=== PATIENT | male | born 1950 | race Caucasian/White ===

== ENCOUNTER → 2019-08-06 13:07 | Outpatient (BNVA) | payer MEDICARE, OTHER, SELFPAY | PROVIDERS: Family Provider Family Medicine; Referring Provider Family Medicine; Visit Provider Podiatrist Foot & Ankle Surgery | DX: M79.671 Pain in right foot (principal); M79.672 Pain in left foot | CPT/HCPCS: 73630 ==

== ENCOUNTER 2019-08-27 07:57 | Outpatient (CLI) | payer MEDICARE, OTHER, SELFPAY ==
--- NOTE | 2019-08-27 08:00 | US_ITS ---
WS: [id number] US soft tissue/extremity 93912 REASON FOR EXAM: ABDOMINAL WALL MASS/HERNIA VS LIPOMA FINDINGS: The abdominal wall was evaluated with real-time imaging. There is no definite hernias are lipoma is seen. Incidental findings the liver showed a septated cyst and there is multiple stones seen in the gallbla dder. US/US soft tissue/extremity 40867 IMPRESSION: No abdominal wall masses hernias or lipomas. Benign cyst of the liver Multiple cholelithiasis.
== END 2019-08-27 07:58 | disposition home or self-care (01) ==
LOC: US 07:58
PROVIDERS: Family Provider Family Medicine; Visit Provider Family Medicine
DX: R22.2 Localized swelling, mass and lump, trunk (principal); K76.89 Other specified diseases of liver; K80.20 Calculus of gallbladder without cholecystitis without obstruction
CPT/HCPCS: 76882

== ENCOUNTER 2019-09-26 06:37 | Day surgery (SDC) | payer MEDICARE, OTHER, SELFPAY ==
[2019-09-25 09:28] VITALS: BMI 31.3
[2019-09-26 06:55] VITALS: BP 137/101; PULSE 82; RESP 18; TEMP 36.4; O2SAT 95
--- NOTE | 2019-09-26 07:01 | P.ANESASSM_ITS ---
Pre-Anesthetic Assessment Pre-Anesthetic Assessment: Height/Weight: Height 1.83 m Weight 104.78 kg Temp Pulse Resp BP Pulse Ox 97.6 F 82 18 137/101 95 09/26/19 06:55 09/26/19 06:55 09/26/19 06:55 09/26/19 06:55 09/26/19 06:55 Preop Diagnosis: Ojeda's esophagus Proposed Procedure: Operation Date: 09/26/19 07:45 Proposed Procedures p EGD 94026/R13.10(Not Applicable) - José Miguel Koch MD Familial anesthetic complications: Patient states he stops breathing when put to sleep on his back Was Beta Yanna taken within 24 hours: N/A Last intake: Intake Last Liquid Date 09/26/19 Last Liquid Time 05:30 Last Intake: 05:30 (water with meds) Social: Social History: No alcohol and No tobacco Exam: Pre-Anes Outpt Exam: alert, oriented x 3, clear to auscultation bilaterally and regular rate & rhythm Airway: Submandibular: WNL Cervical ROM: WNL MP: 2 History/ROS: No significant history except as noted Pulmonary: Comments: LLL removed from pneumonia at age 19; denies any problems since CV/HEM: CV/HEM: HTN : : None reported Hepatic: Hepatic: Hepatitis (C (treated and cured)) GI: GI: GERD Metabolic: Metabolic: Hyperlipidemia Musc/skel: Musc/skel: None reported Neuropsych: Neuropsych: Neuropathy (lyrica) Anesthetic Plan: ASA status: 2 Anesthesia: Anesthesia Evaluation and MAC Risk of > 500 ml blood loss (7ml/kg in children): No PFSH Anesthesia PFSH: Social History Smoking and tobacco status: never smoked Alcohol intake: never Current occupational status: employed Current occupation: [employer] Anesthesia Cardiac Studies: No Data to Display
[2019-09-26] MEDS: sodium chloride 0.9% 1,000 ML 30 ML (07:02)
--- NOTE | 2019-09-26 07:25 | W.PM.OPSUD ---
Surgery/Procedure H&P Update DATE OF PROCEDURE: September 26, 2019 DATE H&P PERFORMED: 09/24/19 H&P UPDATE INFORMATION: I have reviewed H&P completed within last 30 days, I have examined patient prior to procedure and No changes to prior documentation PREOP DIAGNOSIS: Ojeda's esophagus PLANNED PROCEDURE: Operation Date: 09/26/19 07:45 Proposed Procedures p EGD 92615/R13.10(Not Applicable) - José Miguel Koch MD
[2019-09-26 09:30] VITALS: BP 117/71; PULSE 67; RESP 16; TEMP 36.4; O2SAT 96
--- NOTE | 2019-09-26 09:34 | ANE.PACU2 ---
 Inpatient post-anesthesia follow up: Airway intact: Yes Vital signs: Temperature 97.5 F Pulse Rate 67 Respiratory Rate 16 Blood Pressure 117/71 Pulse Oximetry 96 Oxygen Delivery Me thod Nasal Cannula Oxygen Flow Rate 3 Fraction of Inspir ed Oxygen Hydration adequate: Yes Nausea and vomiting: No Mental status: Baseline
[2019-09-26 09:45] VITALS: BP 101/82; PULSE 76; RESP 18; TEMP 36.6; O2SAT 95
== END 2019-09-26 10:05 | disposition home or self-care (01) ==
PROVIDERS: Family Provider Family Medicine; PCP Family Medicine; Visit Provider Surgery
PROC: 0DJ08ZZ Inspection of Upper Intestinal Tract, Via Natural or Artificial Opening Endoscopic (ICD-10-PCS; CPT 43235; principal; 2019-09-26 07:45)
DX: K22.70 Barrett's esophagus without dysplasia (principal); I10 Essential (primary) hypertension; Z86.19 Personal history of other infectious and parasitic diseases; E78.5 Hyperlipidemia, unspecified; Z79.82 Long term (current) use of aspirin
CPT/HCPCS: 12345; 43235; J2704; J7030

== ENCOUNTER 2019-12-27 08:56 | Outpatient (CLI) | payer MEDICARE, OTHER, SELFPAY ==
--- NOTE | 2019-12-27 09:30 | NM_ITS ---
WS: [id number] NM hepatobiliary w phar* [id number] REASON FOR EXAM: RUQ ABDOMINAL PAIN TECHNICAL: 8.1 mCi technetium 99m mebrofenin 8 ounces ensure plus. FINDINGS: After the intravenous injection of the mebrofenin in the gallbladder visualizes at 15 minut es well. Patient was given 8 ounces of ensure plus the ejection fraction is 79%. NM/NM hepatobiliary w phar* [id number] IMPRESSION: Normal evaluation of the gallbladder with normal appearance and normal ejection fraction.
== END 2019-12-27 08:57 | disposition home or self-care (01) ==
LOC: NM 08:56
PROVIDERS: Family Provider Family Medicine; PCP Family Medicine; Visit Provider Family Medicine
DX: R10.11 Right upper quadrant pain (principal)
CPT/HCPCS: 78227; A9537

== ENCOUNTER 2020-02-05 09:25 | Day surgery (SDC) | payer MEDICARE, OTHER, SELFPAY ==
[2020-02-04 13:18] VITALS: BMI 31.6
[2020-02-05] VITALS (9 sets, daily range): BP systolic 138–159; BP diastolic 73–96; PULSE 74–98; RESP 16–31; TEMP 36.5–36.8; O2SAT 92–98
--- NOTE | 2020-02-05 09:51 | W.PM.OPSFHP ---
Same Day Surgery H&P Indication for Procedure/HPI DATE OF PROCEDURE: February 05, 2020 CHIEF COMPLAINT/INDICATIONFOR SURGICAL PROCEDURE: 69-year-old male with right upper quadrant pain status post EGD which did not any significant pathology. Patient continues to have pain and would like to have gallbladder removed. Discussed with him about other pathologies that could mimic gallbladder symptoms PREOP DIAGNOSIS: Cholelithiasis PLANNED PROCEDRUE: Operation Date: 02/05/20 11:05 Proposed Procedures p Laparoscopic poss Open Cholecystectomy 03155 K80.20(Not Applicable) - José Miguel Koch MD Medications/Allergies* Home Medications Medication Instructions Recorded Confirmed Type aspirin 81 mg tablet,delayed 81 mg PO DAILY 08/06/19 02/04/20 History release multivitamin 1 tab PO DAILY 08/06/19 02/04/20 History omega-3 fatty acids 1,000 mg 1,000 mg PO DAILY 08/06/19 02/04/20 History capsule pregabalin 150 mg capsule 150 mg PO TID 08/06/19 02/05/20 History sildenafil 50 mg tablet 50 tab PO PRN PRN 08/06/19 02/04/20 History valsartan 160 mg tablet 160 mg PO DAILY 08/06/19 02/05/20 History omeprazole 40 mg PO DAILY 09/25/19 02/04/20 History tamsulosin 0.4 mg PO DAILY 09/25/19 02/04/20 History Allergies/Adverse Reactions Allergy/AdvReac Type Severity Reaction Status Date / Time No Known Allergies Allergy Verified 10/21/19 09:20 Pertinent History/Comorbid Conditions* Medical History (Updated 09/24/19 @ 14:11 by José Miguel Koch MD) Ojeda esophagus Cholelithiasis Chronic back pain Hepatitis C Post treatment HTN (hypertension) Peripheral neuropathy Surgical History (Updated 09/26/19 @ 09:59 by José Miguel Koch MD) H/O esophagogastroduodenoscopy (~09/26/19) Ojeda's esophagus H/O vasectomy History of colonoscopy with polypectomy History of lobectomy of lung Left lower Family History (Updated 08/06/19 @ 13:28 by Eryn Warner LPN) Denies family history of Diabetes CAD (coronary artery disease) Clotting disorder Dementia Hyperlipidemia Psychiatric illness Chronic kidney disease (CKD) Suicide Anesthesia complication Bleeding disorder Family history of premature coronary artery disease Lung disease Cancer Hypertension Stroke Social History Smoking and tobacco status: never smoked Alcohol intake: never Current occupational status: employed Current occupation: [employer] Pertinent Exam Findings alert, oriented x 3, clear to auscultation bilaterally and regular rate & rhythm Recommendations Surgery/Procedure today Coding Level of Care Code Acute Operator Weapon Locating Radar for Brittani Garcias
[2020-02-05] MEDS: sodium chloride 0.9% 1,000 ML 30 ML IV (09:56)
--- NOTE | 2020-02-05 10:32 | ANES.PREANE2 ---
Pre-Anesthetic Assessment Pre-Anesthetic Assessment: Height/Weight: Height 1.83 m Weight 105.687 kg Temp Pulse Resp BP Pulse Ox 97.7 F 84 18 139/81 95 02/05/20 09:39 02/05/20 09:39 02/05/20 09:39 02/05/20 09:39 02/05/20 09:39 Preop Diagnosis: Cholelithiasis Proposed Procedure: Operation Date: 02/05/20 11:05 Proposed Procedures p Laparoscopic poss Open Cholecystectomy 93312 K80.20(Not Applicable) - José Miguel Koch MD Last intake: Intake Last Liquid Date 02/04/20 Last Liquid Time 19:00 Last Solid Date 02/04/20 Last Solid Time 19:00 Social: Social History: No alcohol and No tobacco Exam: Pre-Anes Outpt Exam: alert, oriented x 3, clear to auscultation bilaterally and regular rate & rhythm Airway: Submandibular: WNL Cervical ROM: WNL MP: 3 Dentition: Other (upper perm bridge) History/ROS: No significant history except as noted Pulmonary: Pulmonary: Sleep apnea CV/HEM: CV/HEM: HTN : : None reported Hepatic: Hepatic: Hepatitis (C, s/p tx) GI: GI: GERD (controlled) Metabolic: Metabolic: Morbid obesity Musc/skel: Musc/skel: Lower Back Pain Neuropsych: Neuropsych: None reported Anesthetic Plan: ASA status: 3 Anesthesia: Anesthesia Evaluation and General Risk of > 500 ml blood loss (7ml/kg in children): No Meds/Allergies Current Medications: Current Medications Generic Name Dose Route Start Last Admin Trade Name Freq PRN Reason Stop Dose Admin Sodium Chloride 1,000 mls @ 30 ml s/hr 02/05/20 09:45 02/05/20 09:56 Sodium Chloride 0.9% IV 02/06/20 09:44 30 mls/hr .Q24H [place] Administration PFSH Anesthesia PFSH: Medical History Ojeda esophagus Cholelithiasis Chronic back pain Hepatitis C Post treatment HTN (hypertension) Peripheral neuropathy Surgical History H/O esophagogastroduodenoscopy (~09/26/19) Ojeda's esophagus H/O vasectomy History of colonoscopy with polypectomy History of lobectomy of lung Left lower Family History Denies family history of Diabetes CAD (coronary artery disease) Clotting disorder Dementia Hyperlipidemia Psychiatric illness Chronic kidney disease (CKD) Suicide Anesthesia complication Bleeding disorder Family history of premature coronary artery disease Lung disease Cancer Hypertension Stroke Social History Smoking and tobacco status: never smoked Alcohol intake: never Current occupational status: employed Current occupation: [employer] Anesthesia Cardiac Studies: No Data to Display
--- NOTE | 2020-02-05 12:07 | P.OP_ITS ---
Operative Report Date of procedure: February 05, 2020 Pre-op Diagnosis: Cholelithiasis, hepatic cysts Post-op Diagnosis: Cholelithiasis 3 x 3 cm multiloculated simple cyst x2 adjacent to the fundus of the gallbladder Procedure Done: Laparoscopic cholecystectomy Laparoscopic unroofing of hepatic cyst Specimens removed/disposition: Hepatic cyst wall Gallbladder Surgeon: José Miguel Koch Anesthesia: General Estimated blood loss (mL): 5 Condition: stable Disposition: PACU Procedure: The patient was taken to the operating room and was intubated under general anesthesia. After the antibiotic had been administered, the abdomen was prepped and draped in a sterile manner. Using a #15 blade, a 1 centimeter infraumbilical curvilinear incision was made and using an open Armani technique the peritoneal cavity was entered. A 10 millimeter port was placed and 15 millimeters of pneumoperitoneum was created. A 10 millimeter, 30 degrees scope was then introduced. Three 5 millimeter ports were placed in the epigastric, midclavicular and the anterior axillary line two fingerbreadths below the costal margin on the right side under the direct visualization. 2 separate hepatic cysts were noted measuring about 3 x 3 cm adjacent to the fundus of the gallbladder. Ratcheted forceps were introduced into the lateral most port and was used to retract the fundus of the gallbladder cephalad and using forceps the infundibulum of the gallbladder was retracted laterally. Using L-hook cautery the peritoneum overlying the Calot's triangle was opened medially and laterally until the cystic duct and the cystic artery were skeletonized. There was a opening in the body of the gallbladder with drainage of bile which was irrigated and suctioned out. The patient dissection was carried along the body of the gal lbladder and after ensuring critical view of safety, 4 clips applied on the cystic duct and 3 clips applied on the cystic artery and cut leaving, 3 clips on the remaining portion of the duct and 2 clips on the remaining portion of the artery. The rest of the gallbladder was dissected off the liver using L-hook cautery. There was no bleeding or bile leaking noted from the gallbladder fossa and the clips appeared to be in place. The hepatic cysts were drained with drainage of clear fluid. Both hepatic cysts were unroofed and loculations taken down using electrocautery. The wall of the hepatic cyst were sent to pathology separately. An EndoCatch bag was introduced to remove the gallbladder. All the ports were removed under direct visualization and there was no bleeding noted from the port sites. The fascia of the umbilicus was closed using [id number] 0 Vicryl sutures and the subcutaneous tissue was approximated using 3-0 Vicryl sutures. The skin at all four ports were closed using 4-0 Monocryl and Dermabond. A total of 10 millimeters of 0.5% Marcaine was infiltrated around the port sites. The patient was stable throughout the procedure.
--- NOTE | 2020-02-05 12:17 | XR_ITS ---
WS: [id number] CHEST XRAY TECHNIQUE: Portable chest. CLINICAL INFORMATION: tachycardia COMPARISON: FINDINGS: Shallow inspiration. Heart: Cardiomegaly. Lungs: Suggestion of tiny bilateral pleural effusions increased on the right. Slight bibasilar atelec tasis. No focal pneumonia. Bones: Normal visualized bony structures. XR/XR chest 1V portable [id number] IMPRESSION: 1. Shallow inspiration with tiny bilateral pleural effusions and bibasilar ate lectasis.
--- NOTE | 2020-02-05 12:17 | ECG_ITS ---
[facility] Test Date: 2020-02-05 Pat Name: Hussein Riley Department: Room: Gender: Male Tensile Tester: : 1950 Requested By: José Miguel Koch Order Number: [id number] Jonh MD: Andriy Servin M.D. Measurements Intervals [place] Rate: 73 P: 46 VT: 152 QRS: -27 QRSD: 113 T: 42 QT: 391 QTc: 432 Interpretive Statements SINUS RHYTHM BORDERLINE LEFT AXIS DEVIATION [QRS AXIS < -20] MODERATE INTRAVENTRICULAR CONDUCTION DELAY [110+ ms QRS DURATION] No previous ECG available for comparison Electronically Signed On 02-06-2020 0:20:39 CDT by Andriy Servin M.D. [email or web address] [email or web address]/[id number]
--- NOTE | 2020-02-05 12:32 | SUR.PHASEI ---
1228 PATIENT TO OPS. DENIES NAUSEA, TOLERATING ICE CHIPS. RATES PAIN 7/10, NOT WANTING IV PAIN MEDS, WANTS A PAIN PILL IN OUTPATIENTS.
--- NOTE | 2020-02-05 12:33 | SUR.PHASEI ---
1200 PATIENT TO PACU FROM OR. RR EVEN AND UNLABORED. 4 INCISIONS TO ABDOMEN, CDI.
--- NOTE | 2020-02-05 12:33 | SUR.PHASEI ---
1215 HR 150-160, PATIENT DENIES CP OR SOB. EKG AND XRAY ORDERED. PER DR. MARIE. PATIENTS HR AUSCULTATED, RATE OF 75, RADIAL PULSE 80.
== END 2020-02-05 13:14 | disposition home or self-care (01) ==
PROVIDERS: PCP Family Medicine; Visit Provider Surgery
PROC: 0FT44ZZ Resection of Gallbladder, Percutaneous Endoscopic Approach (ICD-10-PCS; CPT 47562; principal; 2020-02-05 11:05)
DX: K80.10 Calculus of gallbladder with chronic cholecystitis without obstruction (principal); K76.89 Other specified diseases of liver; I10 Essential (primary) hypertension; Z86.19 Personal history of other infectious and parasitic diseases; K21.9 Gastro-esophageal reflux disease without esophagitis; G47.30 Sleep apnea, unspecified; E66.01 Morbid (severe) obesity due to excess calories; Z68.31 Body mass index [BMI] 31.0-31.9, adult
CPT/HCPCS: 47399; 47562; 12345; 71045; 88304; 93005; J0131; J0690; J1100; J1885; J2405; J2704; J2710; J2765; J3010; J3490; J7030

== ENCOUNTER 2020-03-09 12:52 | Outpatient (CLI) | payer MEDICARE, OTHER, SELFPAY ==
--- NOTE | 2020-03-09 13:31 | CT_ITS ---
WS: [id number] CT ABDOMEN CONTRAST TECHNIQUE: Contrast enhanced CT of the abdomen with coronal and sagittal reformatted images. CLINICAL INFORMATION: RUQ ABDOMINAL PAIN COMPARISON: CT DLP: 802.[address] scans at [facility] use at least one of these dose optimization techniques: automat ed exposure control; mA and/or kV adjustment per patient size (includes targeted exams where dose is matched to clinical indication); or iterative reconstruction. FINDINGS: Mild diffuse fatty infiltration of the liver. Numerous hepatic cysts in both hepatic lobes the larges t measuring up to 5.3 x 4.6 CM. Prominent cyst in the dome the liver measuring 5.1 x 3.6 CM. Normal p ortal vein and splenic vein. Cholecystectomy clips. Enlargement of the right hepatic lobe. Splenic granulomas. Mild fatty atrophy of the pancreas. Normal GE junction. Lung bases are well aerat ed. Slight pleural thickening left lower lobe. Adrenal glands are normal. Normal renal parenchymal enhancement. No hydronephrosis. Normal caliber ab dominal aorta. Mild aortic calcification. No abdominal lymphadenopathy. Incidental fat-containing umb ilical hernia. IMPRESSION: 1. Mild diffuse fatty infiltration liver. 2. Numerous hepatic cysts unchanged since 2019. Largest hepatic cyst measure approximately 5 CM. 3. Prior cholecystectomy. Normal-appearing cholecystectomy bed. 4. Normal caliber abdominal aorta. 5. No abdominal lymphadenopathy.
[2020-03-09 13:48] LABS: Alanine Aminotransferase 25 U/L (0-41); Albumin Level 4.4 g/dL (3.5-5.2); Alkaline Phosphatase 87 IU/L (40-130); Anion Gap 15.5 (5-19); Aspartate Amino Transferase 20 U/L (0-40); Blood Urea Nitrogen 14 mg/dL (8-23); Calcium 8.5 mg/dL (8.5-10.5); Carbon Dioxide 25 mmol/L (22-29); Chloride 105 mmol/L (98-107); Globulin 2.6 g/dL (1.3-4.6); Glomerular Filtration Rate 59.9 mL/min (90-130); Glucose 99 mg/dL (65-115); Osmolality Calculated 288 mOsm/kg (285-295); Potassium 4.5 mmol/L (3.5-5.1); Sodium 141 mmol/L (136-145); Total Bilirubin 0.5 mg/dL (0.15-1.2)
[2020-03-09] MEDS: iohexol 300 mg/mL 50 mL Btl PO (13:49)
[2020-03-09] MEDS: iohexol 300 mg/mL 100 mL Btl IV (14:29)
== END 2020-03-09 12:53 | disposition home or self-care (01) ==
LOC: RADWPI 12:57
PROVIDERS: PCP Family Medicine; Visit Provider Family Medicine
DX: R10.11 Right upper quadrant pain (principal); I10 Essential (primary) hypertension; K76.0 Fatty (change of) liver, not elsewhere classified
CPT/HCPCS: 36415; 74160; 80053; Q9967

== ENCOUNTER → 2020-07-17 08:39 | Outpatient (BNVA) | payer MEDICARE, OTHER, SELFPAY | PROVIDERS: PCP Family Medicine; Visit Provider Orthopaedic Surgery | DX: G89.29 Other chronic pain (principal); M54.9 Dorsalgia, unspecified | CPT/HCPCS: 72114 ==

== ENCOUNTER → 2020-09-01 11:03 | Outpatient (BNVA) | payer MEDICARE, OTHER, SELFPAY | PROVIDERS: PCP Family Medicine; Visit Provider Orthopaedic Surgery | DX: Z11.52 Encounter for screening for COVID-19; M48.061 Spinal stenosis, lumbar region without neurogenic claudication | CPT/HCPCS: 87635 ==

== ENCOUNTER → 2020-09-01 | Day surgery (SDC) | payer MEDICARE, OTHER, SELFPAY | PROVIDERS: PCP Family Medicine; Visit Provider Orthopaedic Surgery | DX: Z01.818 Encounter for other preprocedural examination (principal) | CPT/HCPCS: 93005 ==

== ENCOUNTER 2020-09-07 05:43 | Day surgery (SDC) | payer MEDICARE, OTHER, SELFPAY ==
[2020-09-01 09:54] VITALS: BMI 31.1
--- NOTE | 2020-09-01 10:06 | ECG_ITS ---
[facility] Test Date: 2020-09-01 Pat Name: Hussein Riley Department: Room: Gender: Male Planimeter Operator: : 1950 Requested By: Doug Rodriguez Order Number: [id number] Jonh MD: Adalid Husain M.D. Measurements Intervals [place] Rate: 74 P: 37 NH: 148 QRS: -22 QRSD: 98 T: 36 QT: 372 QTc: 413 Interpretive Statements SINUS RHYTHM BORDERLINE LEFT AXIS DEVIATION [QRS AXIS < -20] Compared to ECG 02/05/2020 12:20:44 Intraventricular conduction delay no longer present Electronically Signed On 09-01-2020 17:46:19 OUTSIDE COLLECTOR by Adalid Husain M.D. [id number]
[2020-09-01 10:37] LABS: Basophils # 0.1 10^3/uL (0.0-0.1); Eosinophils # 0.1 10^3/uL (0.0-0.8); Eosinophils % 1.7 %; Hematocrit 46.9 % (42.0-52.0); Hemoglobin 15.3 g/dL (11.7-16.6); Lymphocytes # 2.1 10^3/uL (0.8-4.8); Lymphocytes % 25.9 %; Mean Corpuscular HGB Conc 32.6 g/dL (30.0-36.0); Mean Corpuscular Hemoglobin 29.4 pg (28.0-34.0); Mean Corpuscular Volume 90.2 fL (80-94); Mean Platelet Volume 10.8 fL (7.4-10.4); Monocytes # 0.7 10^3/uL (0.2-0.9); Monocytes % 8.4 %; Neutrophils # 5.02 10^3/uL (1.8-7.7); Neutrophils % 62.6 %; Nucleated Red Blood Cells % 0 %; Platelet Count 203 10^3/cmm (130-400); Red Cell Distribution Width 13.5 % (12.1-15.1)
--- NOTE | 2020-09-01 10:38 | ANES.PREANE2 ---
Pre-Anesthetic Assessment Pre-Anesthetic Assessment: Height/Weight: Height 1.83 m Weight 104.326 kg Preop Diagnosis: lumbar stenosis L3/4 Proposed Procedure: Operation Date: 09/07/20 07:00 Proposed Procedures p Decompression L3/4 bilateral 81724 m48.061(Not Applicable) - Genaro Oneal, DO Was Beta Yanna taken within 24 hours: N/A Social: Social History: Tobacco (h/o smoking) and No alcohol Exam: Pre-Anes Outpt Exam: alert, oriented x 3, clear to auscultation bilaterally and regular rate & rhythm Airway: Submandibular: WNL Cervical ROM: WNL MP: 2 Dentition: Full Pulmonary: Pulmonary: Sleep apnea CV/HEM: CV/HEM: HTN GI: GI: GERD Metabolic: Metabolic: Morbid obesity Neuropsych: Neuropsych: Neuropathy (BLE) Anesthetic Plan: ASA status: 3 Anesthesia: General Risk of > 500 ml blood loss (7ml/kg in children): No PFSH Anesthesia PFSH: Medical History Ojeda esophagus Chronic back pain Hepatitis C Post treatment HTN (hypertension) Peripheral neuropathy Surgical History H/O esophagogastroduodenoscopy (~09/26/19) Ojeda's esophagus H/O vasectomy History of colonoscopy with polypectomy History of lobectomy of lung Left lower Status post laparoscopic cholecystectomy (~01/2020) With excision of hepatic cyst Family History Denies family history of Diabetes CAD (coronary artery disease) Clotting disorder Dementia Hyperlipidemia Psychiatric illness Chronic kidney disease (CKD) Suicide Anesthesia complication Bleeding disorder Family history of premature coronary artery disease Lung disease Cancer Hypertension Stroke Social History Smoking and tobacco status: never smoked Alcohol intake: never Current occupational status: employed Current occupation: [employer] Anesthesia CBC & Chem 7: 09/01/20 10:22 Other Labs: Laboratory Results - last 48 hr 09/01/20 10:22 WBC 8.0 RBC 5.20 Hgb 15.3 Hct 46.9 MCV 90.2 MCH 29.4 MCHC 32.6 RDW 13.5 Plt Count 203 MPV 10.8 H Neut % (Auto) 62.6 Lymph % (Auto) 25.9 Elliott % (Auto) 8.4 Eos % (Auto) 1.7 Baso % (Auto) 1.0 Neut # (Auto) 5.02 Lymph # (Auto) 2.1 Elliott # (Auto) 0.7 Eos # (Auto) 0.1 Baso # (Auto) 0.1 Nucleated RBC % (auto) 0 Nucleated RBCs # 0.0 Cardiac Studies: No Data to Display
[2020-09-07] VITALS (7 sets, daily range): BP systolic 114–164; BP diastolic 73–95; PULSE 60–115; RESP 15–18; TEMP 36.3–36.5; O2SAT 94–96
--- NOTE | 2020-09-07 | XR_ITS ---
WS: [id number] C-ARM RADIOGRAPHS LUMBAR SPINE; 3 IMAGES HISTORY: Decompression L3/L4 COMPARISON: None available. Intraoperative imaging during spine decompression. Surgical indicator at the L3-4 level. XR/XR lumbar spine 2-3V* [id number] IMPRESSION: Intraoperative imaging at the L3-4 level.
--- NOTE | 2020-09-07 05:57 | SCC_ITS ---
Procedure Done: Bilateral laminectomy with partial facetectomies L3/4 13.9 seconds of fluoroscopic guidance, for a cumulative dose of 9.25 mGy, was provided to Dr. Oneal by the radiology department. C-arm images of the lumbar spine were saved for the patient's permanent record. [facility]OSPITALJustin
[2020-09-07] MEDS: sodium chloride 0.9% 1,000 ML 30 ML IV (06:20)
--- NOTE | 2020-09-07 06:27 | P.ANESUD_ITS ---
Pre-Anesthetic Update Pre-Anesthetic Assessment: Date of Surgery/Procedure: 09/07/20 Preop Natalia gnosis: lumbar stenosis L3/4 Proposed Procedure: Operation Date: 09/07/20 07:00 Proposed Procedures p Decompression L3/4 bilateral 14819 m48.061(Not Applicable) - Genaro Oneal, DO Any changes to Pre-Anesthetic Assessment?: No Last Intake: Intake Last Liquid Date 09/06/20 Last Solid Date 09/06/20 Vitals: Temperature 97.7 F 09/07/20 05:59 Temperature Source Temporal Artery S can 09/07/20 05:59 Pulse Rate 60 09/07/20 05:59 Pulse Rhythm 09/07/20 06:01 Pulse Strength 3+ Normal 09/07/20 06:01 Respiratory Rate 18 09/07/20 05:59 Blood Pressure 134/73 09/07/20 05:59 Blood Pressure Susana n 93 09/07/20 05:59 Pulse Oximetry 95 09/07/20 05:59 Oxygen Delivery Me thod 09/07/20 06:01 Exam: Pre-Anes Outpt Exam: alert, oriented x 3, clear to auscultation bilaterally and regular rate & rhythm Cardiac Studies: No Data to Display
--- NOTE | 2020-09-07 06:50 | P.HP_ITS ---
Providers/Chief Complaint Primary Care Provider: Travis Corrales MD Chief Complaint: Decompression L3/4 bilateral History of Present Illness Hussein Riley is a 70 year old male Details: Onset: No known injury Duration: [10 years and gradually worsening] Characteristics: [Dull, aching, sharp, stabbing] Severity: [moderate] Location: [low back] Radiating symptoms: [right posterior leg] Aggravating factors: [prolonged standing, prolonged sitting, lifting, bending, stooping] Alleviating factors: [sitting down, massage pillow] Neuro deficits: denies numbness, tingling, weakness, incontinence of bowel/bladder, saddle anesthesia. Prior tx: [nerve ablation by Dr. Mcgarry, Tramadol, formal PT Review of Systems Narrative: Const: Denies: fever(s) or chills Card: Denies: chest pain or dyspnea on exertion Resp: Denies: dyspnea or productive cough GI: Denies: abdominal pain, nausea or vomiting Musc: Reports: back pain, extremity pain and limited range of motion Skin/Breast: Denies: changes in skin color or dry skin Neuro: Denies: numbness in extremities or weakness in extremities Psych: Denies: anxiety Bar/Lymph: Denies: easy bruising or easy bleeding Medications/Allergies Home Medications Medication Instructions Recorded Confirmed Last Taken Type aspirin 81 mg tablet,delayed 81 mg PO DAILY 08/06/19 09/07/20 09/05/20 History release multivitamin 1 tab PO DAILY 08/06/19 09/07/20 09/06/20 History omega-3 fatty acids 1,000 mg 1,000 mg PO DAILY 08/06/19 09/07/20 09/06/20 History capsule pregabalin 150 mg capsule 150 mg PO TID 08/06/19 09/07/20 09/07/20 History sildenafil 50 mg tablet 50 tab PO PRN PRN 08/06/19 09/07/20 09/05/20 History valsartan 160 mg tablet 160 mg PO DAILY 08/06/19 09/07/20 09/07/20 History tamsulosin 0.4 mg PO DAILY 09/25/19 09/07/20 09/07/20 History pantoprazole [Protonix] 40 mg PO DAILY 09/01/20 09/07/20 09/07/20 History Allergies Allergy/AdvReac Type Severity Reaction Status Date / Time No Known Allergies Allergy Verified 09/07/20 06:07 PFSH Acute PFSH: Medical History Ojeda esophagus Chronic back pain Hepatitis C Post treatment HTN (hypertension) Peripheral neuropathy Surgical History H/O esophagogastroduodenoscopy (~09/26/19) Ojeda's esophagus H/O vasectomy History of colonoscopy with polypectomy History of lobectomy of lung Left lower Status post laparoscopic cholecystectomy (~01/2020) With excision of hepatic cyst Family History Denies family history of Diabetes CAD (coronary artery disease) Clotting disorder Dementia Hyperlipidemia Psychiatric illness Chronic kidney disease (CKD) Suicide Anesthesia complication Bleeding disorder Family history of premature coronary artery disease Lung disease Cancer Hypertension Stroke Social History Smoking and tobacco status: never smoked Alcohol intake: never Current occupational status: employed Current occupation: [employer] Vitals/I&O/Wt Last Vital Signs Temp 97.7 F 09/07/20 05:59 Pulse 60 09/07/20 05:59 Resp 18 09/07/20 05:59 BP 134/73 09/07/20 05:59 Pulse Ox 95 09/07/20 05:59 Physical Exam Narrative: EXAM NARRATIVE: EXAM NARRATIVE: CONSTITUTIONAL: The patient is a normal appearing 70 year old male patient in no apparent distress. GENERAL: Patient in no acute distress. CARDIAC: Regular rate and rhythm. CHEST: Normal inspiratory effort, normal respiratory rate. ABDOMEN: Soft and nontender. SKIN: Clear, warm and intact. NEURO?PSYCH: The patient is alert and oriented to person, place and time. Sensorv /SILT Motor StrengthShoulder abduction C5 5/5Wrist extension C6 5/5Elbow extension C7 5/5Hand Track Inspector C8 5/5Finger abduction T15/5 Radial/ Ulnar/ Median n intact LowerSensory (SILT)Motor StrengthHin flexion L2/3Ant/inner thigh 5/5Hip adduction L2/3 5/5Knee extension L4 Lat thigh, 5/5Toe dorsiflexion L5 5/5Ankle dorsiflexion L5/ [id number] flexion S1 5/5 DTRBleeps 2+Triceps 2+Brachioradialis 2+Patellar 2+Achilles 2+ MUSCULOSKELETAL: [] UPPEREXTREMITIES: The patient had full active ROM in fingers, wrist, elbow, and shoulder. The patient demonstrated ability to fully flex/extend/abduct/adduct fingers, make ok sign, cross 2nd/3rd digits, extend 1st digit fully.. Radial pulse 2+, CR<2 seconds. LOWER EXTREMITIES: Pt has full, active ROM of toes, ankle, knee, and hip. Dorsalis pedis/posterior tibialis pulses 2+, CR<2 seconds. SPINE: Skin warm, dry, intact. Data : 09/01/20 10:22 A&P Additional A&P Information lumbar stenosis L3/4 MIS L3/4 decompression Attestations Medical Necessity Statement*: failed conservative therapy Coding Level of Care Code Acute Trench Pipe Layer Helper for Brittani Garcias
--- NOTE | 2020-09-07 06:55 | W.PM.OPSUD ---
Surgery/Procedure H&P Update DATE OF PROCEDURE: September 07, 2020 DATE H&P PERFORMED: 09/07/20 H&P UPDATE INFORMATION: I have reviewed H&P completed within last 30 days, I have examined patient prior to procedure and No changes to prior documentation PREOP DIAGNOSIS: lumbar stenosis L3/4 PLANNED PROCEDURE: Operation Date: 09/07/20 07:00 Proposed Procedures p Decompression L3/4 bilateral [id number](Not Applicable) - Genaro Oneal DO
--- NOTE | 2020-09-07 08:16 | PM.OP ---
Operative Report Date of procedure: September 07, 2020 Pre-op Diagnosis: lumbar stenosis L3/4 Post-op diagnosis: same Procedure Done: Bilateral laminectomy with partial facetectomies L3/4 Surgeon: Genaro Oneal Anesthesia: General Estimated blood loss (mL): 5 Condition: stable Disposition: PACU Procedure: Bilateral laminectomy with partial facetectomies L3/4 Patient is brought to the operative suite. After undergoing anesthesia they are placed in the supine position. All areas of impingement are well padded. Patient is then prepped and draped in the normal sterile fashion. A skin incision is made over the L3-4 level. This is confirmed under c-arm guidance. A series of dilators are passed and the tubular retractor is docked on the L3 lamina. A bovie is used to clear the soft tissue off the lamina and the L 3/4 facet joint. A high speed aure is then used to perform the laminectomy and take down the medial aspect of the L 3/4 facet joint. A kerrison rongeure was then used to take down the remaining lamina and smooth the edged of the laminectomy up to the point where the ligamentum flavum attaches. Attention was then brought to the medial aspect of the facet joint. The remaining medial aspect of the superior and inferior aspect of the facet joint were taken down with the kerrison from the pedicle of L3 to L 4. The facet joint had significant hypertrophy. Attention was then brought to the Ligamentum Flavum. The ligament was taken down from the lamina of L3 to L4 and out medially to the remaining facet joint. The ligament was thick. The dura was then exposed. The dura was in good repair. The L3 nerve was then traced with a curette out the L3/4 foramen and found to be adequately decompressed. The L4 nerve was traced with a curette around the L4 pedicle. The lateral recess was opened with a kerrison helping to further decompress the L4 nerve. The tubular retractor was then tilted to the contralateral side. The bovie was used to take down the soft tissue on the spinous process. The high speed aure was used to take down the spinous process and then the contralateral lamina of L3. The kerrison rongeur was used to take down the remaining lamina to the point where the ligamentum flavum attached and the ligamentum flavum was taken down from L3 to L4. The kerrison rongeur was then used to reach across and take down the medial aspect of the contralateral L3/4 facet joint.The currete was used to trace the contralateral L3 nerve out the L3/4 foramen to make sure it was decompressed adequatesly and the L4 was traced around the L4 pedicle. The lateral recess was opened further with the kerrison to ensure the L4 is adequately decompressed. Wound is then irrigated copiously with saline and surgiflo is used to stop any bleeding. The tubular retractor is removed and the wound is closed with vicryl and monocryl suture. Glue is then used to protect the wound. A sterile dressing is then placed. Patient was then placed in the supine position and transferred to the PACU in stable condition.
--- NOTE | 2020-09-07 08:23 | SUR.PHASEI ---
PT AWAKE ALERT ON ARRIVAL TO PACU PT ON RA GOOD RESP EFFORT PT REQUESTS HOB UP TO 45 DEGREES, PT ABLE TO MOVE BILAT FEET TO COMMAND AND STRONGLY, PT ASSISTS WITH REPOSITIONING, DRESSING TO LOWER BACK D/I.
--- NOTE | 2020-09-07 08:27 | P.PCN_ITS ---
PACU note PACU note: VSS, Good respiratory effort, report to GUEST SERVICE HOST Post-Anesthesia Exam: awake
--- NOTE | 2020-09-07 08:27 | PM.PACU ---
PACU note PACU note: VSS, Good respiratory effort, report to MANUFACTURING QUALITY MANAGER Post-Anesthesia Exam: awake
--- NOTE | 2020-09-07 18:04 | ANE.PACU2 ---
Inpatient post-anesthesia follow up: Airway intact: Yes Vital signs: Temperature 97.4 F Pulse Rate 90 Respiratory Rate 18 Blood Pressure 114/87 Pulse Oximetry 96 Oxygen Delivery Me thod Room Air Oxygen Flow Rate Fraction of Inspir ed Oxygen Hydration adequate: Yes Nausea and vomiting: No Pain level: 2 Mental status: Baseline
== END 2020-09-07 09:27 | disposition home or self-care (01) ==
PROVIDERS: Anesthesiology; PCP Family Medicine; Visit Provider Orthopaedic Surgery
PROC: (CPT 63005; principal; 2020-09-07 07:00)
DX: M48.061 Spinal stenosis, lumbar region without neurogenic claudication (principal); Z79.82 Long term (current) use of aspirin; Z86.19 Personal history of other infectious and parasitic diseases; I10 Essential (primary) hypertension; G47.30 Sleep apnea, unspecified; K21.9 Gastro-esophageal reflux disease without esophagitis; E66.01 Morbid (severe) obesity due to excess calories; Z68.31 Body mass index [BMI] 31.0-31.9, adult
CPT/HCPCS: 63047; 36415; 72100; 76000; 85025; J0690; J1100; J2370; J2405; J2704; J2710; J3010; J3490; J7030

== ENCOUNTER 2020-10-07 08:00 | Outpatient (CLI) | payer MEDICARE, OTHER, SELFPAY ==
--- NOTE | 2020-10-07 08:32 | FL_ITS ---
WS: [id number] ESOPHAGRAM TECHNIQUE: Double contrast examination was performed with thin and thick barium. Upright and ALEJANDRO imag es were obtained. CLINICAL INFORMATION: ESOPHAGEAL SPASM, DUNCAN'S ESOPHAGUS, DUODENITIS COMPARISON: None. FINDINGS: Swallowing: No evidence of aspiration or penetration. Prominent cricopharyngeus. No evidence of obstr uction. Esophagus: Moderate esophageal dysmotility with tertiary contractions and delayed emptying. Evidence of reflux esophagitis in the mid to distal esophagus.. No high-grade stricture or obstructing mass. S mall esophageal hiatal hernia. Briefly delayed transit of the barium tablet in the upper esophagus at the thoracic inlet which passed with additional water. Gastroesophageal reflux: Minimal Fluoroscopy time: 3.6 minutes. FL/FL barium swallow [id number] IMPRESSION: 1. Moderate esophageal dysmotility with evidence of Esophagitis in the distal esophagus. No evidence of high-grade stricture. 2. Moderate esophageal dysmotility with delayed emptying and tertiary contract ions. 3. Small esophageal hiatal hernia. 4. Only minimal active reflux is visualized. 5. No evidence of aspiration penetration.
== END 2020-10-07 08:01 | disposition home or self-care (01) ==
LOC: RADWPI 08:02
PROVIDERS: PCP Family Medicine; Visit Provider Family Medicine
DX: K22.4 Dyskinesia of esophagus (principal); Z87.19 Personal history of other diseases of the digestive system; K29.80 Duodenitis without bleeding; K44.9 Diaphragmatic hernia without obstruction or gangrene
CPT/HCPCS: 74220

== ENCOUNTER 2020-10-27 14:25 | Emergency (ER) | payer MEDICARE, OTHER, SELFPAY ==
[2020-10-27 14:51] VITALS: BP 123/81; PULSE 94; RESP 18; TEMP 37.2; O2SAT 97; BMI 30.5
[2020-10-27 15:00] VITALS: BP 136/88; PULSE 97; O2SAT 94
--- NOTE | 2020-10-27 15:24 | XRR_ITS ---
PROCEDURE INFORMATION: Exam: XR Chest Exam date and time: 10/27/2020 3:27 PM Age: 70 years old Clinical indication: Cough and dyspnea; Chest pain; Type not specified; Prior surgery; Surgery type: Left lobectomy; Additional info: Dyspnea/cough TECHNIQUE: Imaging protocol: XR of the chest. Views: 1 view. COMPARISON: CR XR chest 1V portable [id number] 02/05/2020 12:33 PM FINDINGS: Lungs: Mild emphysema. No consolidation. Pleural spaces: Unremarkable. No pleural effusion. No pneumothorax. Heart/Mediastinum: Unremarkable. No cardiomegaly. Bones/joints: Unremarkable. XR/XR chest 1V portable [id number] IMPRESSION: No acute findings.
--- NOTE | 2020-10-27 15:25 | ECG_ITS ---
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
--- NOTE | 2020-10-27 15:39 | ED_ITS ---
Documented by User: Oswaldo Ahumada DO 10/31/20 14:10 HPI - General Adult General: Chief complaint: General Medical Stated complaint: WOKE W/L SIDE OF FACE SWOLLEN,BREAKS OUT IN HIVES Time Seen by Provider: 10/27/20 15:05 History of Present Illness: HPI narrative: 70-year-old male presents emergency room with complaint of facial swelling and hives. He states is been going off and on for a couple of weeks and was seen his primary care provider for got a shot of steroids. He localizes it to the axilla bilaterally as well as to the perineum he isolated 1 spot slight induration in the left antecubital fossa. There is no difficulty breathing although he said he felt the lump in the back of his throat. The initial complaint was of the facial swelling and hives. He had also mentioned a nurse she had some stomach pain and upper substernal pain when I talked to him however most of that it resolved his mentioned he had some chest discomfort on the way and he relegate stat to esophageal dysmotility which she has had worked up in the past. This complaint was very nonspecific as were his exam findings below I called because primary care provider he had seen him there had been a brief mention of is a given his steroids form but did held off on starting him on any antihistamines. Onset (ago): week(s) Location: face Severity: mild Relieving factors: none Exacerbating factors: none Associated symptoms: Reports chest pain; Deny confusion, cough, diaphoresis, decreased appetite, dyspnea, fevers/chills, headache(s), malaise, nausea, rash, palpitations, seizures, short of breath, syncope, vomiting or weakness Treatments prior to arrival: none Review of Systems Const: Denies: malaise or diaphoresis ENMT: Denies: throat pain, ear or mastoid pain, nasal discharge or nasal congestion Card: Reports: chest pain; Denies: palpitations or syncope Resp: Denies: dyspnea GI: Denies: nausea or vomiting : Denies: flank pain, dysuria, urinary frequency or urinary urgency Skin/Breast: Denies: rash Neuro: Denies: headache(s) or confusion [facility] ED PFSH: Medical History Ojeda esophagus Chronic back pain Hepatitis C Post treatment HTN (hypertension) Peripheral neuropathy Surgical History H/O esophagogastroduodenoscopy (~09/26/19) Ojeda's esophagus H/O vasectomy History of colonoscopy with polypectomy History of lobectomy of lung Left lower Status post laparoscopic cholecystectomy (~01/2020) With excision of hepatic cyst Family History Denies family history of Diabetes CAD (coronary artery disease) Clotting disorder Dementia Hyperlipidemia Psychiatric illness Chronic kidney disease (CKD) Suicide Anesthesia complication Bleeding disorder Family history of premature coronary artery disease Lung disease Cancer Hypertension Stroke Social History Smoking and tobacco status: never smoked Alcohol intake: never Current occupational status: employed Current occupation: [employer] Physical Exam Const: COMMON NORMALS: no acute distress GENERAL APPEARANCE: cooperative and comfortable ORIENTATION/CONSCIOUSNESS: Yes awake, Yes oriented to person, Yes oriented to place and Yes oriented to time HENMT: COMMON NORMALS: normocephalic, atraumatic and hearing grossly normal bilaterally HEAD & SCALP: normocephalic and atraumatic OTHER: No stridor posterior pharyngeal wall normal without swelling or distortion of the anatomical landmarks. Neck/C-Spine: COMMON NORMALS: no JVD Resp: COMMON NORMALS: normal respiratory effort, No retractions, No use of accessory muscles and clear to auscultation bilaterally AUSCULTATION: clear to auscultation bilaterally Cardio: COMMON NORMALS: no JVD, regular rate, regular rhythm and No murmurs present (Cardio) RATE: regular rate RHYTHM: regular rhythm GI: COMMON NORMALS: Soft to palpation and No hepatosplenomegaly present AUSCULTATION: Yes normoactive bowel sounds PALPATION: Yes Soft to palpation, No Tenderness to palpation present (GI), No Guarding due to palpation present (GI) and Yes No hepatosplenomegaly present Extremity: COMMON NORMALS: normal to inspection, capillary refill normal, no clubbing, cyanosis or edema, no calf tenderness and no pedal edema Neuro: SENSORIUM/ORIENTATION: Yes oriented to person, Yes oriented to place and Yes oriented to time Skin: NARRATIVE SKIN EXAM: Subtle swelling of the left side of the face. Sensation is normal muscle strength is normal. It gives in appearance suggestive of العراقي's palsy. He has no watering of the eye he is able to close the eye well. There is slight induration and erythema in the axillary areas there is a solitary indurated lesion appears to be subdermal in the left antecubital fossa. There is no vesicles there is no dermatomal pattern to it it definitely crosses midline. Course Vital Signs: Vital signs: Vital Signs Temperature 99.0 F 10/27/20 14:51 Pulse Rate 71 10/27/20 18:37 Respiratory Rate 20 H 10/27/20 18:37 Blood Pressure 122/70 10/27/20 18:37 Pulse Oximetry 94 10/27/20 18:37 MDM - General Adult MDM Narrative: Medical decision making narrative: Care turned over to Dr. Leos at change of shift see his notes for final diagnosis and disposition. I did talk to Dr. Corrales he had recommended antihistamines and may be increasing his PPI. Lab Data: Labs: Lab Results 10/27/20 10/27/20 10/27/20 Range/Units 15:33 15:33 15:33 WBC 12.4 H (4.0-10.0) 10^3/ uL RBC 5.37 H (4.1-5.3) 10^6/u L Hgb 15.5 (11.7-16.6) g/dL Hct 47.4 (42.0-52.0) % MCV 88.3 (80-94) fL MCH 28.9 (28.0-34.0) pg MCHC 32.7 (30.0-36.0) g/dL RDW 13.5 (12.1-15.1) % Plt Count 251 (130-400) 10^3/c mm MPV 10.9 H (7.4-10.4) fL Neut % (Auto) 75.9 % Lymph % (Auto) 16.2 % [place] % (Auto) 5.7 % Eos % (Auto) 1.1 % Baso % (Auto) 0.5 % Neut # (Auto) 9.41 H (1.8-7.7) 10^3/u L Lymph # (Auto) 2.0 (0.8-4.8) 10^3/u L [place] # (Auto) 0.7 (0.2-0.9) 10^3/u L Eos # (Auto) 0.1 (0.0-0.8) 10^3/u L Baso # (Auto) 0.1 (0.0-0.1) 10^3/u L Nucleated RBC % (a uto) 0 % Nucleated RBCs # 0.0 /100WBC Sodium 138 (136-145) mmol/L Potassium 4.0 (3.5-5.1) mmol/L Chloride 99 (98-107) mmol/L Carbon Dioxide 28 (22-29) mmol/L Anion Gap 15.0 (5-19) BUN 14 (8-23) mg/dL Creatinine 1.3 H (0.7-1.2) mg/dL GFR Calculation 54.6 L (90-130) mL/min Glucose 80 (65-115) mg/dL Calculated Osmolal ity 285 (285-295) mOsm/k g Calcium 8.9 (8.5-10.5) mg/dL Total Bilirubin 0.7 (0.15-1.2) mg/dL AST 23 (0-40) U/L ALT 29 (0-41) U/L Alkaline Phosphata se 125 (40-130) IU/L Troponin T Baselin e 11 (0-15) ng/L Troponin T 120 Min [place] (0-15) ng/L Delta Troponin T (0-10) ABS# Total Protein 7.2 (6.6-8.7) g/dL Albumin 4.9 (3.5-5.2) g/dL Globulin 2.3 (1.3-4.6) g/dL // Range/Units 17:30 WBC (4.0-10.0) 10^3/ uL RBC (4.1-5.3) 10^6/u L Hgb (11.7-16.6) g/dL Hct (42.0-52.0) % MCV (80-94) fL MCH (28.0-34.0) pg MCHC (30.0-36.0) g/dL RDW (12.1-15.1) % Plt Count (130-400) 10^3/c mm MPV (7.4-10.4) fL Neut % (Auto) % Lymph % (Auto) % [place] % (Auto) % Eos % (Auto) % Baso % (Auto) % Neut # (Auto) (1.8-7.7) 10^3/u L Lymph # (Auto) (0.8-4.8) 10^3/u L [place] # (Auto) (0.2-0.9) 10^3/u L Eos # (Auto) (0.0-0.8) 10^3/u L Baso # (Auto) (0.0-0.1) 10^3/u L Nucleated RBC % (a uto) % Nucleated RBCs # /100WBC Sodium (136-145) mmol/L Potassium (3.5-5.1) mmol/L Chloride (98-107) mmol/L Carbon Dioxide (22-29) mmol/L Anion Gap (5-19) BUN (8-23) mg/dL Creatinine (0.7-1.2) mg/dL GFR Calculation (90-130) mL/min Glucose (65-115) mg/dL Calculated Osmolal ity (285-295) mOsm/k g Calcium (8.5-10.5) mg/dL Total Bilirubin (0.15-1.2) mg/dL AST (0-40) U/L ALT (0-41) U/L Alkaline Phosphata se (40-130) IU/L Troponin T Baselin e (0-15) ng/L Troponin T 120 Min [place] 10.21 (0-15) ng/L Delta Troponin T -0.79 L (0-10) ABS# Total Protein (6.6-8.7) g/dL Albumin (3.5-5.2) g/dL Globulin (1.3-4.6) g/dL Discharge Plan Discharge Patient Disposition: Home Clinical Impression: Chest pain due to GERD, Urticaria, Esophageal spasm Condition: Stable Prescriptions: New Zyrtec 10 mg tablet 10 mg PO DAILY PRN (Reason: allergy symptoms) Qty: 10 RF: 0 Pepcid 40 mg tablet 40 mg PO BID Qty: 10 RF: 2 Levsin/SL 0.125 mg tablet, sublingual 0.125 mg PO Q6H PRN (Reason: dyspepsia) Qty: 15 RF: 2 No Action aspirin 81 mg tablet,delayed release (DR/EC) 81 mg PO DAILY@2200 RF: 0 valsartan [Diovan] 160 mg tablet 160 mg PO DAILY@0700 RF: 0 omega-3 fatty acids [Fish Oil Concentrate] 1,000 mg capsule 1,000 mg PO DAILY@0700 RF: 0 pregabalin [Lyrica] 150 mg capsule 150 mg PO TID@0800,1200,1900 RF: 0 multivitamin Tablet 1 tab PO DAILY@0700 RF: 0 sildenafil 50 mg tablet 50 tab PO PRN PRN (Reason: Erectile Dysfunction) RF: 0 pantoprazole [Protonix] 40 mg Tablet,Delayed Release (Dr/Ec) 40 mg PO DAILY@0700 RF: 0 tamsulosin 0.4 mg capsule 0.4 mg PO DAILY@0700 RF: 0 sucralfate 1 gram tablet 1 g PO Q6H RF: 0 hydrocodone-acetaminophen 5-325 mg tablet 1 - 2 tab PO Q4H PRN (Reason: Pain) RF: 0 Discharge Orders: Discharge ED (Routine); Ordered 10/27/20 Ordered By: Ashu Leos Referrals: Travis Corrales MD [Primary Care Provider] - Discharge Diet: Advance as tolerated Discharge Activity: Resume usual activity Patient Instructions: Opioid Safety Activity Restrictions/Additional Instructions: Patient will hold Protonix until pepcid completed. Sign Out Sign Out Data: Patient Sign Out occurred on 10/27/20 at 18:14. Patient's care was discussed, and care was transferred from to Ashu Leos MD. Coding Level of Care Code ED Gui Developer for Chg Fwd Exam Comprehensive Documented by User: Ashu Leos MD 10/27/20 18:32 HPI - General Adult General: Chief complaint: General Medical Stated complaint: WOKE W/L SIDE OF FACE SWOLLEN,BREAKS OUT IN HIVES Time Seen by Provider: 10/27/20 15:05 PFSH ED PFSH: Medical History Ojeda esophagus Chronic back pain Hepatitis C Post treatment HTN (hypertension) Peripheral neuropathy Surgical History H/O esophagogastroduodenoscopy (~09/26/19) Ojeda's esophagus H/O vasectomy History of colonoscopy with polypectomy History of lobectomy of lung Left lower Status post laparoscopic cholecystectomy (~01/2020) With excision of hepatic cyst Family History Denies family history of Diabetes CAD (coronary artery disease) Clotting disorder Dementia Hyperlipidemia Psychiatric illness Chronic kidney disease (CKD) Suicide Anesthesia complication Bleeding disorder Family history of premature coronary artery disease Lung disease Cancer Hypertension Stroke Social History Smoking and tobacco status: never smoked Alcohol intake: never Current occupational status: employed Current occupation: [employer] Physical Exam Chest: COMMONS NORMALS: normal inspection of the chest Resp: COMMON NORMALS: normal respiratory effort and clear to auscultation bilaterally AUSCULTATION: clear to auscultation bilaterally Cardio: COMMON NORMALS: regular rate and regular rhythm RATE: regular rate RHYTHM: regular rhythm Skin: NARRATIVE SKIN EXAM: Mild diffuse hives Course Vital Signs: Vital signs: Vital Signs Temperature 99.0 F 10/27/20 14:51 Pulse Rate 71 10/27/20 18:37 Respiratory Rate 20 H 10/27/20 18:37 Blood Pressure 122/70 10/27/20 18:37 Pulse Oximetry 94 10/27/20 18:37 MDM - General Adult MDM Narrative: Medical decision making narrative: Second troponin is normal. Patient believes that he is having esophageal spasms. Will have patient substitute Pepcid for Protonix for the next 5 days to help with the allergic reaction. We will also add Levsin. Also add Zyrtec. Lab Data: Labs: Lab Results 10/27/20 10/27/20 10/27/20 Range/Units 15:33 15:33 15:33 WBC 12.4 H (4.0-10.0) 10^3/ uL RBC 5.37 H (4.1-5.3) 10^6/u L Hgb 15.5 (11.7-16.6) g/dL Hct 47.4 (42.0-52.0) % MCV 88.3 (80-94) fL MCH 28.9 (28.0-34.0) pg MCHC 32.7 (30.0-36.0) g/dL RDW 13.5 (12.1-15.1) % Plt Count 251 (130-400) 10^3/c mm MPV 10.9 H (7.4-10.4) fL Neut % (Auto) 75.9 % Lymph % (Auto) 16.2 % [place] % (Auto) 5.7 % Eos % (Auto) 1.1 % Baso % (Auto) 0.5 % Neut # (Auto) 9.41 H (1.8-7.7) 10^3/u L Lymph # (Auto) 2.0 (0.8-4.8) 10^3/u L [place] # (Auto) 0.7 (0.2-0.9) 10^3/u L Eos # (Auto) 0.1 (0.0-0.8) 10^3/u L Baso # (Auto) 0.1 (0.0-0.1) 10^3/u L Nucleated RBC % (a uto) 0 % Nucleated RBCs # 0.0 /100WBC Sodium 138 (136-145) mmol/L Potassium 4.0 (3.5-5.1) mmol/L Chloride 99 (98-107) mmol/L Carbon Dioxide 28 (22-29) mmol/L Anion Gap 15.0 (5-19) BUN 14 (8-23) mg/dL Creatinine 1.3 H (0.7-1.2) mg/dL GFR Calculation 54.6 L (90-130) mL/min Glucose 80 (65-115) mg/dL Calculated Osmolal ity 285 (285-295) mOsm/k g Calcium 8.9 (8.5-10.5) mg/dL Total Bilirubin 0.7 (0.15-1.2) mg/dL AST 23 (0-40) U/L ALT 29 (0-41) U/L Alkaline Phosphata se 125 (40-130) IU/L Troponin T Baselin e 11 (0-15) ng/L Troponin T 120 Min [place] (0-15) ng/L Delta Troponin T (0-10) ABS# Total Protein 7.2 (6.6-8.7) g/dL Albumin 4.9 (3.5-5.2) g/dL Globulin 2.3 (1.3-4.6) g/dL 10/27/20 Range/Units 17:30 WBC (4.0-10.0) 10^3/ uL RBC (4.1-5.3) 10^6/u L Hgb (11.7-16.6) g/dL Hct (42.0-52.0) % MCV (80-94) fL MCH (28.0-34.0) pg MCHC (30.0-36.0) g/dL RDW (12.1-15.1) % Plt Count (130-400) 10^3/c mm MPV (7.4-10.4) fL Neut % (Auto) % Lymph % (Auto) % [place] % (Auto) % Eos % (Auto) % Baso % (Auto) % Neut # (Auto) (1.8-7.7) 10^3/u L Lymph # (Auto) (0.8-4.8) 10^3/u L [place] # (Auto) (0.2-0.9) 10^3/u L Eos # (Auto) (0.0-0.8) 10^3/u L Baso # (Auto) (0.0-0.1) 10^3/u L Nucleated RBC % (a uto) % Nucleated RBCs # /100WBC Sodium (136-145) mmol/L Potassium (3.5-5.1) mmol/L Chloride (98-107) mmol/L Carbon Dioxide (22-29) mmol/L Anion Gap (5-19) BUN (8-23) mg/dL Creatinine (0.7-1.2) mg/dL GFR Calculation (90-130) mL/min Glucose (65-115) mg/dL Calculated Osmolal ity (285-295) mOsm/k g Calcium (8.5-10.5) mg/dL Total Bilirubin (0.15-1.2) mg/dL AST (0-40) U/L ALT (0-41) U/L Alkaline Phosphata se (40-130) IU/L Troponin T Baselin e (0-15) ng/L Troponin T 120 Min [place] 10.21 (0-15) ng/L Delta Troponin T -0.79 L (0-10) ABS# Total Protein (6.6-8.7) g/dL Albumin (3.5-5.2) g/dL Globulin (1.3-4.6) g/dL Discharge Plan Discharge Patient Disposition: Home Clinical Impression: Chest pain due to GERD, Urticaria, Esophageal spasm Condition: Stable Prescriptions: New Zyrtec 10 mg tablet 10 mg PO DAILY PRN (Reason: allergy symptoms) Qty: 10 RF: 0 Pepcid 40 mg tablet 40 mg PO BID Qty: 10 RF: 2 Levsin/SL 0.125 mg tablet, sublingual 0.125 mg PO Q6H PRN (Reason: dyspepsia) Qty: 15 RF: 2 No Action aspirin 81 mg tablet,delayed release (DR/EC) 81 mg PO DAILY@2200 RF: 0 valsartan [Diovan] 160 mg tablet 160 mg PO DAILY@0700 RF: 0 omega-3 fatty acids [Fish Oil Concentrate] 1,000 mg capsule 1,000 mg PO DAILY@0700 RF: 0 pregabalin [Lyrica] 150 mg capsule 150 mg PO TID@0800,1200,1900 RF: 0 multivitamin Tablet 1 tab PO DAILY@0700 RF: 0 sildenafil 50 mg tablet 50 tab PO PRN PRN (Reason: Erectile Dysfunction) RF: 0 pantoprazole [Protonix] 40 mg Tablet,Delayed Release (Dr/Ec) 40 mg PO DAILY@0700 RF: 0 tamsulosin 0.4 mg capsule 0.4 mg PO DAILY@0700 RF: 0 sucralfate 1 gram tablet 1 g PO Q6H RF: 0 hydrocodone-acetaminophen 5-325 mg tablet 1 - 2 tab PO Q4H PRN (Reason: Pain) RF: 0 Discharge Orders: Discharge ED (Routine); Ordered 10/27/20 Ordered By: Ashu Leos Referrals: Travis Corrales MD [Primary Care Provider] - Discharge Diet: Advance as tolerated Discharge Activity: Resume usual activity Patient Instructions: Opioid Safety Activity Restrictions/Additional Instructions: Patient will hold Protonix until pepcid completed. Sign Out Sign Out Data: Patient Sign Out occurred on 10/27/20 at 18:14. Patient's care was discussed, and care was transferred from to Ashu Leos MD. Coding Level of Care Code ED Gui Developer for Chg Fwd Exam Comprehensive
[2020-10-27 15:53] LABS: Basophils # 0.1 10^3/uL (0.0-0.1); Basophils % 0.5 %; Eosinophils # 0.1 10^3/uL (0.0-0.8); Eosinophils % 1.1 %; Hematocrit 47.4 % (42.0-52.0); Hemoglobin 15.5 g/dL (11.7-16.6); Lymphocytes % 16.2 %; Mean Corpuscular HGB Conc 32.7 g/dL (30.0-36.0); Mean Corpuscular Hemoglobin 28.9 pg (28.0-34.0); Mean Corpuscular Volume 88.3 fL (80-94); Mean Platelet Volume 10.9 fL (7.4-10.4); Monocytes # 0.7 10^3/uL (0.2-0.9); Monocytes % 5.7 %; Neutrophils # 9.41 10^3/uL (1.8-7.7); Neutrophils % 75.9 %; Nucleated Red Blood Cells % 0 %; Platelet Count 251 10^3/cmm (130-400); Red Blood Count 5.37 10^6/uL (4.1-5.3); Red Cell Distribution Width 13.5 % (12.1-15.1); White Blood Count 12.4 10^3/uL (4.0-10.0)
[2020-10-27 16:01] LABS: Alanine Aminotransferase 29 U/L (0-41); Albumin Level 4.9 g/dL (3.5-5.2); Alkaline Phosphatase 125 IU/L (40-130); Aspartate Amino Transferase 23 U/L (0-40); Blood Urea Nitrogen 14 mg/dL (8-23); Calcium 8.9 mg/dL (8.5-10.5); Carbon Dioxide 28 mmol/L (22-29); Chloride 99 mmol/L (98-107); Globulin 2.3 g/dL (1.3-4.6); Glomerular Filtration Rate 54.6 mL/min (90-130); Glucose 80 mg/dL (65-115); Osmolality Calculated 285 mOsm/kg (285-295); Sodium 138 mmol/L (136-145); Total Bilirubin 0.7 mg/dL (0.15-1.2); Total Protein 7.2 g/dL (6.6-8.7)
[2020-10-27 16:03] LABS: Troponin(5th) Baseline 11 ng/L (0-15)
[2020-10-27 16:30] VITALS: BP 109/86; PULSE 74; RESP 13; O2SAT 95
[2020-10-27 17:15] VITALS: PULSE 77
--- NOTE | 2020-10-27 17:25 | ECG_ITS ---
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1950 Requested By: Oswaldo Krause Order Number: [id number] Reading MD: DUANE FOSS Measurements Intervals [place] Rate: 80 P: 7 CA: 148 QRS: -6 QRSD: 85 T: -7 QT: 351 QTc: 406 Interpretive Statements SINUS RHYTHM LOW QRS VOLTAGE IN PRECORDIAL LEADS [QRS DEFLECTION < 1.0 mV IN CHEST LEADS] PATTERN CONSISTENT WITH PULMONARY DISEASE Compared to ECG 10/27/2020 16:01:11 Low QRS voltage now present Electronically Signed On 10-27-2020 23:42:06 CDT by DUANE FOSS [id number]
[2020-10-27 18:14] LABS: Troponin 5 2HR 10.21 ng/L (0-15)
[2020-10-27 18:21] LABS: Troponin 5 2HR Delta -0.79 ABS# (0-10)
[2020-10-27 18:37] VITALS: BP 122/70; PULSE 71; RESP 20; O2SAT 94
== END 2020-10-27 18:38 | disposition home or self-care (01) ==
PROVIDERS: Family Medicine; Emergency Provider Family Medicine; PCP Family Medicine
DX: L50.9 Urticaria, unspecified (principal); K21.9 Gastro-esophageal reflux disease without esophagitis; K22.4 Dyskinesia of esophagus; Z79.82 Long term (current) use of aspirin; Z86.19 Personal history of other infectious and parasitic diseases; I10 Essential (primary) hypertension
CPT/HCPCS: 36415; 71045; 80053; 84484; 85025; 93005; 99283

== ENCOUNTER 2021-03-11 08:32 | Outpatient (CLI) | payer MEDICARE, OTHER, SELFPAY ==
--- NOTE | 2021-03-11 08:41 | FL_ITS ---
WS: [id number] Modified barium swallow, 03/11/2021 Clinical Data: Other dysphagia Comparison: None. Fluoroscopy time: 2 minutes. Findings: The patient had good oral initiation with minimal premature spillage. In the pharyngeal phase there w as no aspiration or penetration. There is small amount of cricopharyngeal achalasia. In the esophagus that were tertiary contractions and poor motility. FL/FL barium swallow modifd [id number] Impression: 1. Minimal cricopharyngeal achalasia. 2. Tertiary contractions and poor motility in the esophagus.
--- NOTE | 2021-03-11 08:41 | CT_ITS ---
WS: [id number] CT NECK WITH CONTRAST HISTORY: DYSPHAGIA TECHNIQUE: Contiguous 5 mm axial images are performed through the neck with intravenous contrast. Sag ittal and coronal reformats are also submitted. All CT scans at [facility] use at least one o f these dose optimization techniques: automated exposure control; mA and/or kV adjustment per patient size (includes targeted exams where dose is matched to clinical indication); or iterative reconstruc tion. CONTRAST: CONTRAST: Visipaque 320; 95 mL IV. DLP: 430.52 mGy.cm COMPARISON: None available. Nasopharynx, oropharynx, hypopharynx and larynx are unremarkable. No soft tissue masses or abnormal e nhancement. Torus tubarius and fossa of Rosenmuller and parapharyngeal fat are normal. Small benign cervical chain lymph nodes are identified. Thyroid gland and salivary glands are normally enhancing with no masses. Increase in cervical lordosis and degenerative disc space narrowing and osteophytosis. No fractures. Visualized portions of the skull base demonstrate no abnormalities. Orbits and globes are within norm al limits. No soft tissue masses. Visualized paranasal sinuses and mastoid air cells are normal. Lung apices are clear. CT/CT neck w con* [id number] IMPRESSION: 1. No neck mass identified or significant adenopathy. 2. Mild cervical spondylosis.
[2021-03-11] MEDS: iodixanol 320 mg/mL 100mL Btl IV (10:00)
== END 2021-03-11 08:33 | disposition home or self-care (01) ==
LOC: RAD 08:35
PROVIDERS: PCP Family Medicine; Visit Provider Specialist
DX: R13.10 Dysphagia, unspecified (principal); M47.812 Spondylosis without myelopathy or radiculopathy, cervical region
CPT/HCPCS: 70491; 74230; 92611

== ENCOUNTER 2021-04-15 14:12 | Outpatient (CLI) | payer MEDICARE, OTHER, SELFPAY ==
--- NOTE | 2021-04-15 14:25 | ECG_ITS ---
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 Measurements Intervals [place] Rate: 55 P: 40 WV: 156 QRS: -21 QRSD: 94 T: 12 QT: 410 QTc: 394 Interpretive Statements SINUS BRADYCARDIA BORDERLINE LEFT AXIS DEVIATION [QRS AXIS < -20] Compared to ECG 10/27/2020 17:41:35 Sinus rhythm no longer present Electronically Signed On 04-16-2021 19:40:25 CDT by Sonja Lam M.D. [id number]
== END 2021-04-15 14:13 | disposition home or self-care (01) ==
LOC: RT 14:19
PROVIDERS: PCP Family Medicine; Visit Provider Specialist
DX: R13.19 Other dysphagia (principal); Z01.810 Encounter for preprocedural cardiovascular examination
CPT/HCPCS: 93005

== ENCOUNTER 2021-09-16 14:16 | Outpatient (CLI) | payer MEDICARE, OTHER, SELFPAY ==
--- NOTE | 2021-09-16 14:39 | MR_ITS ---
WS: [id number] MRI LUMBAR SPINE NONCONTRAST TECHNIQUE: Sagittal T1, T2 and STIR imaging. Axial T1 and T2 imaging. CLINICAL INFORMATION: M54.50 - Low back pain, unspecified COMPARISON: MRI 11 FINDINGS: Mild lumbar curve. No acute compression. No high-grade central canal stenosis. Slight anterolisthesis L4 on L5. L1-L2: Normal. L2-L3: No significant disc bulging. Mild facet arthropathy. Spinal canal and foramen are patent. L3-L4: Mild disc bulging with osteophytic ridging. Prior RIGHT hemilaminectomy. Slight impingement tr aversing RIGHT L4 nerve root. Mild bilateral foraminal narrowing. Moderate facet arthropathy. RIGHT h emilaminectomy appears new since 2018. L4-L5: Slight anterolisthesis L4 on L5 progressed since 2018. Osteophytic ridging. Mild central canal stenosis. Impingement traversing RIGHT L5 nerve root. Foramen are patent. Moderate facet arthropathy . L5-S1: Minimal disc bulging. Slight effacement of ventral thecal sac. Spinal canal and foramen are pa tent. Mild facet arthropathy. 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 MR/MR lumbar spine wo con* [id number] IMPRESSION: 1. Mild lumbar curve. No acute compression. No high-grade central canal stenos is. 2. Grade 1 anterolisthesis L4 on L5 appears slightly progressed compared to . 3. Mild central canal stenosis L4-L5 with impingement on traversing RIGHT grea ter than LEFT L5 nerve roots progressed since 2018. Moderate facet arthropathy at this level. 4. RIGHT hemilaminectomy L3-L4 with slight impingement on the RIGHT subarticul ar recess and traversing RIGHT L4 nerve root. 5. Mild RIGHT greater than LEFT L3-L4 foraminal narrowing with moderate facet arthropathy.
== END 2021-09-16 14:17 | disposition home or self-care (01) ==
PROVIDERS: PCP Family Medicine; Visit Provider Orthopaedic Surgery
DX: M48.061 Spinal stenosis, lumbar region without neurogenic claudication (principal)
CPT/HCPCS: 72148

== ENCOUNTER → 2021-09-30 08:48 | Outpatient (BNVA) | payer MEDICARE, OTHER, SELFPAY | PROVIDERS: PCP Family Medicine; Visit Provider Orthopaedic Surgery | DX: M48.062 Spinal stenosis, lumbar region with neurogenic claudication (principal); M43.16 Spondylolisthesis, lumbar region | CPT/HCPCS: 72120 ==

== ENCOUNTER → 2021-10-05 09:35 | Outpatient (BNVA) | payer MEDICARE, OTHER, SELFPAY | PROVIDERS: PCP Family Medicine; Referring Provider Family Medicine; Visit Provider Anesthesiology Pain Medicine | DX: M48.062 Spinal stenosis, lumbar region with neurogenic claudication (principal); M43.16 Spondylolisthesis, lumbar region; M47.816 Spondylosis without myelopathy or radiculopathy, lumbar region; M79.604 Pain in right leg; M79.605 Pain in left leg; G62.9 Polyneuropathy, unspecified; Z87.891 Personal history of nicotine dependence | CPT/HCPCS: 99205 ==

== ENCOUNTER → 2021-10-13 12:51 | Outpatient (BNVA) | payer MEDICARE, OTHER, SELFPAY | PROVIDERS: PCP Family Medicine; Visit Provider Anesthesiology Pain Medicine | DX: M54.16 Radiculopathy, lumbar region (principal); M48.062 Spinal stenosis, lumbar region with neurogenic claudication | CPT/HCPCS: 64483; 64484; J1100; J3490 ==

== ENCOUNTER → 2021-10-27 10:23 | Outpatient (BNVA) | payer MEDICARE, OTHER, SELFPAY | PROVIDERS: PCP Family Medicine; Visit Provider Anesthesiology Pain Medicine | DX: M48.062 Spinal stenosis, lumbar region with neurogenic claudication (principal); M43.16 Spondylolisthesis, lumbar region; M47.816 Spondylosis without myelopathy or radiculopathy, lumbar region; G62.9 Polyneuropathy, unspecified; M79.604 Pain in right leg; M79.605 Pain in left leg; Z87.891 Personal history of nicotine dependence | CPT/HCPCS: 99213 ==

== ENCOUNTER → 2021-10-28 13:26 | Outpatient (BNVA) | payer MEDICARE, OTHER, SELFPAY | PROVIDERS: PCP Family Medicine; Visit Provider Orthopaedic Surgery | DX: M48.062 Spinal stenosis, lumbar region with neurogenic claudication (principal) | CPT/HCPCS: 99213 ==

== ENCOUNTER → 2021-10-29 09:21 | Outpatient (BNVA) | payer MEDICARE, OTHER, SELFPAY | PROVIDERS: PCP Family Medicine; Visit Provider Urology | DX: R97.20 Elevated prostate specific antigen [PSA] (principal); R39.9 Unspecified symptoms and signs involving the genitourinary system | CPT/HCPCS: 81003; 84153 ==

== ENCOUNTER → 2022-01-26 09:27 | Outpatient (BNVA) | payer MEDICARE, OTHER, SELFPAY | PROVIDERS: PCP Family Medicine; Visit Provider Anesthesiology Pain Medicine | DX: M48.062 Spinal stenosis, lumbar region with neurogenic claudication (principal); M43.16 Spondylolisthesis, lumbar region; M47.816 Spondylosis without myelopathy or radiculopathy, lumbar region; G62.9 Polyneuropathy, unspecified; Z79.891 Long term (current) use of opiate analgesic; Z87.891 Personal history of nicotine dependence | CPT/HCPCS: 99214 ==

== ENCOUNTER 2022-02-03 09:31 | Outpatient (CLI) | payer MEDICARE, OTHER, SELFPAY ==
--- NOTE | 2022-02-03 09:37 | USCV_ITS ---
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
== END 2022-02-03 09:32 | disposition home or self-care (01) ==
LOC: RAD 09:31
PROVIDERS: PCP Family Medicine; Visit Provider Family Medicine
DX: I73.9 Peripheral vascular disease, unspecified (principal); M79.673 Pain in unspecified foot
CPT/HCPCS: 93922

== ENCOUNTER 2022-02-10 13:25 | Outpatient (CLI) | payer MEDICARE, OTHER, SELFPAY ==
[2022-02-10 14:50] LABS: Prostate Specific AG Urology 5.88 ng/mL (0-4)
== END 2022-02-10 13:26 | disposition home or self-care (01) ==
PROVIDERS: PCP Family Medicine; Visit Provider Urology
DX: R97.20 Elevated prostate specific antigen [PSA] (principal); N40.1 Benign prostatic hyperplasia with lower urinary tract symptoms; Z80.42 Family history of malignant neoplasm of prostate
CPT/HCPCS: 51741; 51798; 81003; 84153; 99213

== ENCOUNTER → 2022-04-27 09:22 | Outpatient (BNVA) | payer MEDICARE, OTHER, SELFPAY | PROVIDERS: PCP Family Medicine; Visit Provider Anesthesiology Pain Medicine | DX: M48.062 Spinal stenosis, lumbar region with neurogenic claudication (principal); M43.16 Spondylolisthesis, lumbar region; M47.816 Spondylosis without myelopathy or radiculopathy, lumbar region; M79.604 Pain in right leg; M79.605 Pain in left leg; C61 Malignant neoplasm of prostate; Z87.891 Personal history of nicotine dependence | CPT/HCPCS: 99214 ==

== ENCOUNTER → 2022-06-24 10:56 | Outpatient (BNVA) | payer MEDICARE, OTHER, SELFPAY | PROVIDERS: PCP Family Medicine; Visit Provider Family Medicine | DX: R30.0 Dysuria (principal) | CPT/HCPCS: 81000; 87077; 87086; 87184 ==

== ENCOUNTER → 2022-07-20 09:59 | Outpatient (BNVA) | payer MEDICARE, OTHER, SELFPAY | PROVIDERS: PCP Family Medicine; Visit Provider Anesthesiology Pain Medicine | DX: M48.062 Spinal stenosis, lumbar region with neurogenic claudication (principal); M43.16 Spondylolisthesis, lumbar region; M47.816 Spondylosis without myelopathy or radiculopathy, lumbar region; G62.9 Polyneuropathy, unspecified | CPT/HCPCS: 99213; 99214 ==

== ENCOUNTER → 2022-07-21 14:30 | Outpatient (BNVA) | payer MEDICARE, OTHER, SELFPAY | PROVIDERS: PCP Family Medicine; Visit Provider Orthopaedic Surgery | DX: M48.062 Spinal stenosis, lumbar region with neurogenic claudication (principal); M47.816 Spondylosis without myelopathy or radiculopathy, lumbar region | CPT/HCPCS: 72110; 99214 ==

== ENCOUNTER 2022-08-19 11:46 | Outpatient (CLI) | payer MEDICARE, OTHER, SELFPAY | END 2022-08-19 11:47 | disposition home or self-care (01) | LOC: RT 08-23 11:53 | PROVIDERS: PCP Family Medicine; Visit Provider Orthopaedic Surgery | DX: Z13.6 Encounter for screening for cardiovascular disorders (principal) | CPT/HCPCS: 93005 ==

== ENCOUNTER 2022-08-26 05:41 | Day surgery (SDC) | payer MEDICARE, OTHER, SELFPAY ==
--- NOTE | 2022-08-19 11:41 | ECG_ITS ---
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 Measurements Intervals [place] Rate: 60 P: 37 WA: 158 QRS: -13 QRSD: 98 T: 52 QT: 374 QTc: 376 Interpretive Statements SINUS RHYTHM LOW QRS VOLTAGE IN PRECORDIAL LEADS [QRS DEFLECTION < 1.0 mV IN CHEST LEADS] Compared to ECG 04/15/2021 14:26:58 Low QRS voltage now present Sinus bradycardia no longer present Electronically Signed On 08-19-2022 16:22:52 UNDERGROUND ELECTRICIAN by Colin Browning M.D. [id number]
[2022-08-19 12:11] VITALS: BMI 30.9
[2022-08-26 06:06] VITALS: BP 161/92; PULSE 69; RESP 18; TEMP 36.6; O2SAT 96
[2022-08-26] MEDS: sodium chloride 0.9% 1,000 ML 30 ML IV (06:20)
--- NOTE | 2022-08-26 06:31 | PM.HP ---
Providers/Chief Complaint Primary Care Provider: Travis Corrales MD Chief Complaint: Bilateral L4/5 decompresdsion stand [id number]/M48.06 History of Present Illness Hussein Riley is a 72 year old male ow back pain. He rates his pain 2/10 today. He describes pain to the bilateral lower extermrity with the right being worse. He states his pain keeps him awake at night. Review of Systems General: Reports: 10 or more systems reviewed and unremarkable except in HPI and below Const: Denies: fever(s) or chills Card: Denies: chest pain or dyspnea on exertion Resp: Denies: dyspnea or productive cough GI: Denies: abdominal pain, nausea or vomiting Musc: Reports: extremity pain and limited range of motion (pain with standing on concrete or stooping, right side sciatic pain); Denies: joint pain or joint swelling Skin/Breast: Denies: changes in skin color or dry skin Neuro: Denies: numbness in extremities or weakness in extremities Psych: Denies: anxiety Bar/Lymph: Denies: easy bruising or easy bleeding Medications/Allergies Home Medications Medication Instructions Recorded Confirmed Last Taken Type aspirin 81 mg tablet,delayed 81 mg PO DAILY@2200 08/06/19 08/19/22 08/04/22 History release multivitamin 1 tab PO DAILY@0700 08/06/19 08/26/22 10/27/20 History omega-3 fatty acids 1,000 mg 1,000 mg PO DAILY@0700 08/06/19 08/19/22 07/29/22 History capsule (Fish Oil Concentrate) pregabalin 150 mg capsule (Lyrica) 150 mg PO TID@0800,1200,1900 08/06/19 08/19/22 08/26/22 History sildenafil 50 mg tablet 50 tab PO PRN PRN Erectile 08/06/19 08/26/22 08/19/22 History Dysfunction pantoprazole 40 mg tablet,delayed 40 mg PO DAILY@0700 09/01/20 08/19/22 08/26/22 History release (Protonix) hydrocodone 5 mg-acetaminophen 325 1 tab PO Q6H PRN Pain 10/29/21 08/19/22 08/23/22 History mg tablet atenolol 25 mg tablet See Rx Instructions .Route 06/17/22 08/19/2223 Rx .COMPLEX #30 tabs albuterol sulfate 90 mcg/actuation 2 puff inhalation Q6H PRN 08/11/22 08/19/22 08/25/22 Rx aerosol inhaler (ProAir HFA) shortness of breath or wheezing #8.5 grams Allergies Allergy/AdvReac Type Severity Reaction Status Date / Time No Known Allergies Allergy Verified 07/20/22 10:00 PFSH Acute PFSH: Medical History 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 Chronic back pain Elevated PSA Hepatitis C Post treatment HTN (hypertension) Peripheral neuropathy Surgical History H/O esophagogastroduodenoscopy (~09/26/19) Ojeda's esophagus H/O vasectomy History of colonoscopy with polypectomy History of lobectomy of lung Left lower History of prostatectomy Fortino - 05/2022 Status post laparoscopic cholecystectomy (~01/2020) With excision of hepatic cyst Family History Father , AT 83 Cardiac arrest as complication of care Mother , AT AGE 90 Stroke Social History Smoking and tobacco status: former smoker Second hand smoke exposure: No Alcohol intake: never Marital status: Current occupational status: employed and retired Current occupation: [employer] History of recent travel: No Vitals/I&O/Wt Last Vital Signs Temp 97.9 F 08/26/22 06:06 Pulse 69 08/26/22 06:06 Resp 18 08/26/22 06:06 BP 161/92 08/26/22 06:06 Pulse Ox 96 08/26/22 06:06 O2 Del Method 08/26/22 06:09 Physical Exam Narrative: EXAM NARRATIVE: CONSTITUTIONAL: The patient is a normal appearing 70 year old male patient in no apparent distress. GENERAL: Patient in no acute distress. CARDIAC: Regular rate and rhythm. CHEST: Normal inspiratory effort, normal respiratory rate. ABDOMEN: Soft and nontender. SKIN: Clear, warm and intact. NEURO?PSYCH: The patient is alert and oriented to person, place and time. Sensorv /SILT Motor StrengthShoulder abduction C5 5/5Wrist extension C6 5/5Elbow extension C7 5/5Hand Account Development Associate C8 5/5Finger abduction T15/5 Radial/ Ulnar/ Median n intact LowerSensory (SILT)Motor StrengthHin flexion L2/3Ant/inner thigh 5/5Hip adduction L2/3 5/5Knee extension L4 Lat thigh, 5/5Toe dorsiflexion L5 5/5Ankle dorsiflexion L5/ [id number] flexion S1 5/5 DTRBleeps 2+Triceps 2+Brachioradialis 2+Patellar 2+Achilles 2+ MUSCULOSKELETAL: [] UPPEREXTREMITIES: The patient had full active ROM in fingers, wrist, elbow, and shoulder. The patient demonstrated ability to fully flex/extend/abduct/adduct fingers, make ok sign, cross 2nd/3rd digits, extend 1st digit fully.. Radial pulse 2+, CR<2 seconds. LOWER EXTREMITIES: Pt has full, active ROM of toes, ankle, knee, and hip. Dorsalis pedis/posterior tibialis pulses 2+, CR<2 seconds. SPINE: Skin warm, dry, intact. A&P Assessment and plan (1) Lumbar stenosis with neurogenic claudication: L4/5 MIS decompression Attestations Medical Necessity Statement*: failed conservative tx Coding Level of Care Code Acute Code for Chg Fwd Diagnoses Lumbar stenosis with neurogenic claudication M48.062
[2022-08-26] MEDS: ceFAZolin 2,000 MG in sodium chloride 0.9% (plus) 50 ML 100 MG IV (06:57)
--- NOTE | 2022-08-26 06:59 | ANES.PREANE2 ---
Pre-Anesthetic Assessment Height/Weight: Height 1.83 m Weight 103.419 kg Temp Pulse Resp BP Pulse Ox O2 Del Method 97.9 F 69 18 161/92 96 08/26/22 06:06 08/26/22 06:06 08/26/22 06:06 08/26/22 06:06 08/26/22 06:06 08/26/22 06:09 Preop Diagnosis: Lumbar stenosis Operation Date: 08/26/22 07:00 Proposed Procedures p Lumbar Spine Decompression Bilateral L4/5 40852 stand on the right side M48.062(Bilateral) - Genaro Oneal DO Familial anesthetic complications: none Was Beta Yanna taken within 24 hours: Yes Was Clonidine taken within 24 hours: N/A Last intake: Intake Last Liquid Date 08/25/22 Last Liquid Time 20:00 Last Solid Date 08/25/22 Last Solid Time 18:00 Social No alcohol and No tobacco Exam alert, oriented x 3, clear to auscultation bilaterally and regular rate & rhythm Airway Submandibular: within normal limits Cervical ROM: within normal limits Mallampati: Class III Dentition: caps GI Gastroesophageal Reflux Disease Musc/skel Lower Back Pain and Osteoarthritis/DJD Neuropsych Neuropathy Anesthetic Plan ASA status: 3 Anesthesia: General Medications/Allergies Home Medications Medication Instructions Recorded Confirmed Last Taken Type aspirin 81 mg tablet,delayed 81 mg PO DAILY@2200 08/06/19 08/19/22 08/04/22 History release multivitamin 1 tab PO DAILY@0700 08/06/19 08/26/22 10/27/20 History omega-3 fatty acids 1,000 mg 1,000 mg PO DAILY@0700 08/06/19 08/19/22 07/29/22 History capsule (Fish Oil Concentrate) pregabalin 150 mg capsule (Lyrica) 150 mg PO TID@0800,1200,1900 08/06/19 08/19/22 08/26/22 History sildenafil 50 mg tablet 50 tab PO PRN PRN Erectile 08/06/19 08/26/22 08/19/22 History Dysfunction pantoprazole 40 mg tablet,delayed 40 mg PO DAILY@0700 09/01/20 08/19/22 08/26/22 History release (Protonix) hydrocodone 5 mg-acetaminophen 325 1 tab PO Q6H PRN Pain 10/29/21 08/19/22 08/23/22 History mg tablet atenolol 25 mg tablet See Rx Instructions .Route 06/17/22 08/19/22 08/26/22 Rx .COMPLEX #30 tabs albuterol sulfate 90 mcg/actuation 2 puff inhalation Q6H PRN 08/11/22 08/19/22 08/25/22 Rx aerosol inhaler (ProAir HFA) shortness of breath or wheezing #8.5 grams Allergies Allergy/AdvReac Type Severity Reaction Status Date / Time No Known Allergies Allergy Verified 07/20/22 10:00 Current Medications Generic Name Dose Route Start Last Admin Trade Name Freq PRN Reason Stop Dose Admin Sodium Chloride 1,000 mls @ 30 mls/hr 08/26/22 06:00 08/26/22 06:20 Sodium Chloride 0.9% IV 08/27/22 05:59 30 mls/hr .Q24H [place] Administration PFSH Anesthesia Medical History 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 Chronic back pain Elevated PSA Hepatitis C Post treatment HTN (hypertension) Peripheral neuropathy Surgical History H/O esophagogastroduodenoscopy (~09/26/19) Ojeda's esophagus H/O vasectomy History of colonoscopy with polypectomy History of lobectomy of lung Left lower History of prostatectomy Fortino - 05/2022 Status post laparoscopic cholecystectomy (~01/2020) With excision of hepatic cyst Family History Father , AT 83 Cardiac arrest as complication of care Mother , AT AGE 90 Stroke Social History Smoking and tobacco status: former smoker Second hand smoke exposure: No Alcohol intake: never Marital status: Current occupational status: employed and retired Current occupation: [employer] History of recent travel: No Data Anesthesia Cardiac Studies: No Data to Display
[2022-08-26] MEDS: lidocaine-epi 2% 20 mL INJ INJECTION (07:24)
--- NOTE | 2022-08-26 08:05 | XR_ITS ---
NOTE: Report was unsigned for reason: Ordering provider was edited. Original Signature date and time was: 08/26/2022 0820. WS: [id number] Lumbar spine, C-arm fluoroscopy view, 08/26/2022 Clinical Data: or pics Comparison: None. Findings: Dr. Oneal performed a lumbar decompression. [facility] XR/XR lumbar spine 1V [id number] Impression: Lumbar decompression.
[2022-08-26 08:17] VITALS: BP 150/86; PULSE 92; RESP 16; TEMP 36.1; O2SAT 94
--- NOTE | 2022-08-26 08:18 | P.OP_ITS ---
Operative Report Date of procedure: August 26, 2022 Pre-op diagnosis: Preop Diagnosis Lumbar stenosis with neurogenic claudication Post-op diagnosis: same Procedure done: 1. L4/5 laminectomy with partial facetectomies Surgeon: Genaro Oneal Career Development Facilitator: Nathan Yi Career Development Facilitator: The nursing surgical services director, SURY Mueller was needed for his expertise under the microscope. He was important and necessary throughout the procedure to complete in a safe and timely manner. He assisted with patient positioning prepping and draping tissue retraction suctioning of the operative field protection of the dural sac and tissue closure Estimated blood loss (mL): 20 Procedure: 1. L4/5 laminectomy with partial facetectomies Patient is brought to the operative suite. After undergoing anesthesia they are placed in the prone position. All areas of impingement are well padded. Patient is then prepped and draped in the normal sterile fashion. A skin incision is made over the L4/5 level. This is confirmed under c-arm guidance. A series of dilators are passed and the tubular retractor is docked on the L4 lamina. A bovie is used to clear the soft tissue off the lamina and the L 4/5 facet joint. A high speed aure is then used to perform the laminectomy and take down the medial aspect of the L 4/5 facet joint. A kerrison rongeure was then used to take down the remaining lamina and smooth the edged of the laminectomy up to the point where the ligamentum flavum attaches. Attention was then brought to the medial aspect of the facet joint. The remaining medial aspect of the superior and inferior aspect of the facet joint were taken down with the kerrison from the pedicle of L4 to L 5. The facet joint had significant hypertrophy. Attention was then brought to the Ligamentum Flavum. The ligament was taken down from the lamina of L4 to L5 and out medially to the remaining facet joint. The ligament was thick. The dura was then exposed. The dura was in good repair. The L4 nerve was then traced with a curette out the L4/5 foramen and found to be adequately decompressed. The L5 nerve was traced with a curette around the L5 pedicle. The lateral recess was opened with a kerrison helping to further decompress the L5 nerve. The tubular retractor was then tilted to the contralateral side. The bovie was used to take down the soft tissue on the spinous process. The high speed aure was used to take down the spinous process and then the contralateral lamina of L4. The kerrison rongeur was used to take down the remaining lamina to the poin t where the ligamentum flavum attached and the ligamentum flavum was taken down from L4 to L5. The kerrison rongeur was then used to reach across and take down the medial aspect of the contralateral L4/5 facet joint.The currete was used to trace the contralateral L4 nerve out the L4/5 foramen to make sure it was decompressed adequatesly and the L5 was traced around the L5 pedicle. The lateral recess was opened further with the kerrison to ensure the L5 is adequately decompressed. Wound is then irrigated copiously with saline and surgiflo is used to stop any bleeding. The tubular retractor is removed and the wound is closed with vicryl and monocryl suture. Glue is then used to protect the wound. A sterile dressing is then placed. Patient was then placed in the supine position and transferred to the PACU in stable condition.
[2022-08-26 08:21] VITALS: BP 149/93; PULSE 83; RESP 16; O2SAT 97
[2022-08-26 08:26] VITALS: BP 139/93; PULSE 92; RESP 16; TEMP 36.1; O2SAT 94
[2022-08-26 08:34] VITALS: BP 132/83; PULSE 82; RESP 16; TEMP 36.4; O2SAT 94
[2022-08-26] MEDS: oxyCODONE-APAP 5-325 mg Tablet 1 TAB PO (09:09)
--- NOTE | 2022-08-26 14:20 | ANE.PACU2 ---
Inpatient post-anesthesia follow up: Airway intact: Yes Vital signs: Temperature 97.6 F Pulse Rate 82 Respiratory Rate 16 Blood Pressure 132/83 Pulse Oximetry 94 Oxygen Delivery Me thod Room Air Oxygen Flow Rate 4 Fraction of Inspir ed Oxygen Hydration adequate: Yes Nausea and vomiting: No Pain level: 4 Mental status: Baseline
== END 2022-08-26 09:30 | disposition home or self-care (01) ==
PROVIDERS: PCP Family Medicine; Visit Provider Orthopaedic Surgery
PROC: (CPT 63005; principal; 2022-08-26 07:00)
DX: M48.062 Spinal stenosis, lumbar region with neurogenic claudication (principal); K21.9 Gastro-esophageal reflux disease without esophagitis; Z79.82 Long term (current) use of aspirin; N40.1 Benign prostatic hyperplasia with lower urinary tract symptoms; N13.8 Other obstructive and reflux uropathy; I10 Essential (primary) hypertension; Z86.19 Personal history of other infectious and parasitic diseases; Z87.891 Personal history of nicotine dependence
CPT/HCPCS: 63047; 72020; 76000; J0690; J1100; J2405; J2704; J3010; J3490; J7030

== ENCOUNTER → 2022-09-08 10:24 | Outpatient (BNVA) | payer MEDICARE, OTHER, SELFPAY | PROVIDERS: PCP Family Medicine; Visit Provider Physician Assistant | DX: Z98.890 Other specified postprocedural states (principal); M54.17 Radiculopathy, lumbosacral region | CPT/HCPCS: 99024 ==

== ENCOUNTER → 2022-09-22 09:00 | Outpatient (BNVA) | payer MEDICARE, OTHER, SELFPAY | PROVIDERS: PCP Family Medicine; Visit Provider Physician Assistant | DX: Z98.890 Other specified postprocedural states (principal) | CPT/HCPCS: 99024 ==

== ENCOUNTER → 2022-11-08 14:04 | Outpatient (BNVA) | payer MEDICARE, OTHER, SELFPAY | PROVIDERS: PCP Family Medicine; Visit Provider Physician Assistant | DX: M54.17 Radiculopathy, lumbosacral region (principal); Z98.890 Other specified postprocedural states; M48.062 Spinal stenosis, lumbar region with neurogenic claudication; M43.16 Spondylolisthesis, lumbar region | CPT/HCPCS: 99213 ==

== ENCOUNTER 2022-11-23 07:46 | Outpatient (CLI) | payer MEDICARE, OTHER, SELFPAY ==
--- NOTE | 2022-11-23 08:00 | MR_ITS ---
WS: [id number] MRI LUMBAR SPINE NONCONTRAST TECHNIQUE: Sagittal T1, T2 and STIR imaging. Axial T1 and T2 imaging. CLINICAL INFORMATION: hx of lumbar laminectiomy, increased post op pain COMPARISON: MRI September 16, 2021 FINDINGS: Today counting performed from the craniocervical junction on the media buyer imaging. S1 is lumba rized. This differs from prior numbering convention September 16, 2021. Grade 1 anterolisthesis L5 on S1. This is unchanged compared to previous. Disc space narrowing worse L4-L5. Postoperative changes laminectomy defects L4-L5 and L5-S1 with decompression. L1-L2: Normal. L2-L3: No significant disc bulging. Mild facet arthropathy. Spinal canal and foramen are patent. L3-L4: Mild annular bulging. Spinal canal and foramen are patent. L4-L5: Laminectomy defects stable from previous with RIGHT hemilaminectomy. Mild narrowing of the RIG HT subarticular recess. Moderate facet arthropathy. Mild RIGHT and no significant LEFT foraminal narr owing L5-S1: Laminectomy defects medial from previous. Spinal canal is patent. Mild narrowing of subarticul ar recess bilaterally. Mild LEFT and no significant RIGHT foraminal narrowing. Small LEFT foraminal p rotrusion encroaches on the exiting LEFT L5 nerve root new from previous. Small facet effusions. S1-S2: S1 is lumbarized. Mild annular bulging. Shallow central protrusion. Spinal canal and foramen a re patent. Mild facet arthropathy. Visualized pelvic bony structures: Normal. Paravertebral soft tissues: Normal. Incidental Tarlov cysts. MR/MR lumbar spine wo con* [id number] IMPRESSION:Today counting performed from the craniocervical junction on the sco ut imaging. S1 is lumbarized. 1. Mild lumbar curve. No acute compression. 2. Laminectomy defects L5-S1 are new from previous. Stable L4-L5 RIGHT hemilam inectomy. 3. No recurrent disc extrusion. 4. Mild residual narrowing of the RIGHT subarticular recess L4-L5 with encroac hment on the RIGHT L5 nerve root. Mild RIGHT L4-L5 foraminal narrowing. 5. Mild narrowing of the RIGHT greater than LEFT L5-S1 subarticular recess. Sp inal canal is patent. Mild LEFT lateral foraminal narrowing with a tiny foramin al protrusion appears progressed. Recommend correlation LEFT L5 nerve root symp toms. 6. Moderate facet arthropathy worse L5-S1 with small facet effusions. 7. No other acute findings.
== END 2022-11-23 07:47 | disposition home or self-care (01) ==
LOC: RAD 07:50
PROVIDERS: PCP Family Medicine; Visit Provider Orthopaedic Surgery
DX: M54.17 Radiculopathy, lumbosacral region (principal); M43.16 Spondylolisthesis, lumbar region; M48.062 Spinal stenosis, lumbar region with neurogenic claudication; M47.817 Spondylosis without myelopathy or radiculopathy, lumbosacral region; Z98.890 Other specified postprocedural states
CPT/HCPCS: 72148; 99213

== ENCOUNTER → 2022-12-01 14:53 | Outpatient (BNVA) | payer MEDICARE, OTHER, SELFPAY | PROVIDERS: PCP Family Medicine; Visit Provider Orthopaedic Surgery | DX: M54.50 Low back pain, unspecified (principal); R20.0 Anesthesia of skin; R20.2 Paresthesia of skin | CPT/HCPCS: 99024; 99213 ==

== ENCOUNTER → 2023-01-25 12:45 | Outpatient (BNVA) | payer MEDICARE, OTHER, SELFPAY | PROVIDERS: PCP Family Medicine; Visit Provider Family Medicine | DX: R39.9 Unspecified symptoms and signs involving the genitourinary system (principal) | CPT/HCPCS: 81000 ==

== ENCOUNTER → 2023-03-16 09:11 | Outpatient (BNVA) | payer MEDICARE, OTHER, SELFPAY | PROVIDERS: PCP Family Medicine; Visit Provider Family Medicine | DX: Z51.81 Encounter for therapeutic drug level monitoring (principal); I10 Essential (primary) hypertension; Z13.220 Encounter for screening for lipoid disorders; R97.20 Elevated prostate specific antigen [PSA] | CPT/HCPCS: 80053; 80061; 84153; 85025 ==

== ENCOUNTER → 2023-04-04 07:45 | Outpatient (BNVA) | payer MEDICARE, OTHER, SELFPAY | PROVIDERS: PCP Family Medicine; Referring Provider Family Medicine; Visit Provider Psychiatry & Neurology Neurology | DX: G62.9 Polyneuropathy, unspecified (principal); M54.17 Radiculopathy, lumbosacral region; E55.9 Vitamin D deficiency, unspecified; E07.9 Disorder of thyroid, unspecified | CPT/HCPCS: 82306; 82607; 82746; 83735; 83921; 84439; 84443; 84481; 86780; 99203 ==

== ENCOUNTER → 2023-09-04 07:22 | Outpatient (BNVA) | payer MEDICARE, OTHER, SELFPAY | PROVIDERS: PCP Family Medicine; Visit Provider Podiatrist Foot & Ankle Surgery | DX: M21.41 Flat foot [pes planus] (acquired), right foot; M21.42 Flat foot [pes planus] (acquired), left foot; M72.2 Plantar fascial fibromatosis; G62.9 Polyneuropathy, unspecified | CPT/HCPCS: 99213 ==

== ENCOUNTER → 2023-11-23 11:24 | Outpatient (BNVA) | payer MEDICARE, OTHER, SELFPAY | PROVIDERS: PCP Family Medicine; Visit Provider Family Medicine | DX: R30.0 Dysuria (principal) | CPT/HCPCS: 87086 ==

== ENCOUNTER → 2024-01-18 09:35 | Outpatient (BNVA) | payer MEDICARE, OTHER, SELFPAY | PROVIDERS: PCP Family Medicine; Visit Provider Orthopaedic Surgery | DX: M54.17 Radiculopathy, lumbosacral region (principal); Z98.890 Other specified postprocedural states; M48.062 Spinal stenosis, lumbar region with neurogenic claudication; M43.16 Spondylolisthesis, lumbar region; M47.816 Spondylosis without myelopathy or radiculopathy, lumbar region | CPT/HCPCS: 72110; 99213 ==

== ENCOUNTER 2025-01-07 11:38 | Outpatient (CLI) | payer MEDICARE, OTHER, SELFPAY ==
--- NOTE | 2025-01-07 11:44 | XRR_ITS ---
PROCEDURE INFORMATION: Exam: XR Chest Exam date and time: 01/07/2025 11:58 AM Age: 74 years old Clinical indication: Cough; Prior surgery; Surgery date: 6+ months; Surgery type: Lumpectomy; HX of prostate cancer; Additional info: Cough 2+ weeks / dyspnea / completed 5 d antibiotics. . . TECHNIQUE: Imaging protocol: Radiologic exam of the chest. Views: 2 views. COMPARISON: CR XR chest 1V portable [id number] 10/27/2020 3:23 PM FINDINGS: Lungs: Redemonstrated chronic left pleural thickening or pleural effusion with overlying lung compression. Hazy airspace and interstitial opacities in the right mid to lower lung. Pleural spaces: See Lungs finding. Heart/Mediastinum: The cardiomediastinal silhouette is stable. Vasculature: Calcifications of the aortic arch. Bones/joints: Exaggerated kyphosis of the thoracic spine. Multilevel degenerative changes. Partially visualized lower thoracic spinal stimulator leads. XR/XR chest 2V* [id number] IMPRESSION: 1. Hazy opacity within the right mid to lower lung may reflect atelectasis and/or edema however developing infection is not excluded. 2. Chronic left pleural effusion/thickening with overlying lung compression.
== END 2025-01-07 11:39 | disposition home or self-care (01) ==
PROVIDERS: PCP Family Medicine; Visit Provider Family Medicine
DX: J18.9 Pneumonia, unspecified organism (principal); R91.8 Other nonspecific abnormal finding of lung field; I70.0 Atherosclerosis of aorta; M40.294 Other kyphosis, thoracic region; M47.9 Spondylosis, unspecified; Z96.89 Presence of other specified functional implants
CPT/HCPCS: 71046

== ENCOUNTER → 2025-06-24 09:36 | Outpatient (BNVA) | payer OTHER, SELFPAY | PROVIDERS: PCP Family Medicine; Visit Provider Podiatrist Foot & Ankle Surgery | DX: G62.9 Polyneuropathy, unspecified (principal); M72.2 Plantar fascial fibromatosis; M21.41 Flat foot [pes planus] (acquired), right foot; M21.42 Flat foot [pes planus] (acquired), left foot | CPT/HCPCS: 99214 ==